=== PATIENT | male | born 1940 | race Caucasian/White ===

== ENCOUNTER 2021-05-26 08:29 | Emergency (ER) | payer MEDICARE, SELFPAY ==
[2021-05-26 08:30] VITALS: BP 130/95; PULSE 58; RESP 17; TEMP 36.3; O2SAT 100; BMI 25.2
--- NOTE | 2021-05-26 09:22 | EKG12_ITS ---
Test Reason : FALL Blood Pressure : / mmHG Vent. Rate : 054 BPM Atrial Rate : 054 BPM P-R Int : 186 ms QRS Dur : 092 ms QT Int : 476 ms P-R-T Axes : 061 059 056 degrees QTc Int : 451 ms Sinus bradycardia Otherwise normal ECG Confirmed by VIVIENNE BROOKS, MARTINEZ ([id number]), newspaper editor KATE ROBISON ([id number]) on 05/29/2021 9:05:38 AM Referred By: Confirmed By:MARTINEZ PALAFOX MD
--- NOTE | 2021-05-26 09:22 | CT_ITS ---
STUDY: CT BRAIN WITHOUT CONTRAST REASON FOR EXAM: Male, 80 years old. injury RADIATION DOSAGE (If Supplied By Facility): CTDIvol = ( 44.99 ) mGy, DLP = ( ) mGycm TECHNIQUE: Transaxial CT imaging of the brain was performed without administration of intravenous contrast material. Individualized dose optimization techniques were used for this CT. COMPARISON: No relevant priors. FINDINGS: Normal soft tissue structures. Normal calvarium. Normal size ventricles and extra-axial spaces for the patient''s age. Normal white matter tracts of the cerebral hemispheres. Normal basal ganglia and thalami. Normal brainstem. Normal cerebellum. There is no intracranial hemorrhage. There are no findings of an acute ischemic infarction. Normal visualized paranasal sinuses. CT/Brain/Head without Contrast IMPRESSION: Normal unenhanced CT scan of the brain. Electronically Signed: Boyd Godwin MD at 10:07 EST Tel , Service support ,
--- NOTE | 2021-05-26 09:22 | RAD_ITS ---
STUDY: X-RAY CHEST REASON FOR EXAM: Male, 80 years old. syncope TECHNIQUE: Single AP portable view of the chest. COMPARISON: None. FINDINGS: The lungs are clear and expanded. There is no demonstrated pleural abnormality. Normal size heart. Normal mediastinum and martha. Normal visualized pulmonary arteries. Normal visualized aortic arch and descending thoracic aorta. Normal visualized thoracic spine. Normal visualized ribs, clavicles, and shoulders. There is no demonstrated abnormality of the visualized soft tissue structures of the upper abdomen. RAD/Chest 1 View (Portable) IMPRESSION: Normal x-ray examination of the chest. Electronically Signed: Boyd Godwin MD at 10:30 EST Tel , Service support ,
--- NOTE | 2021-05-26 09:22 | CT_ITS ---
STUDY: CT CERVICAL SPINE WITHOUT CONTRAST REASON FOR EXAM: Male, 80 years old. injury RADIATION DOSAGE (If Supplied By Facility): CTDIvol = ( 17.92 ) mGy, DLP = ( 1178.73 ) mGycm TECHNIQUE: High resolution transaxial imaging was performed without contrast material. Sagittal and coronal images were reconstructed. Individualized dose optimization techniques were used for this CT. COMPARISON: 06/03/2016 FINDINGS: Normal craniovertebral junction. There are degenerative changes of the anterior atlantoaxial articulation. Normal odontoid process. Normal cervical lordosis. Normal vertebral bodies and posterior osseous elements. Flowing paravertebral ossification within the lower cervical spine consistent with diffuse idiopathic skeletal hyperostosis (DISH) (. C2-3: Mild right facet hypertrophy with ankylosis of the facet joint. No spinal stenosis or neural foraminal stenosis. C3-4: Moderate right facet hypertrophy with ankylosis of facet joint produces moderate right neural foraminal stenosis. No central spinal stenosis. C4-5: Mild left facet hypertrophy produces mild left neural foraminal stenosis. No central spinal stenosis. C5-6: Status post posterior decompression and transpedicular fixation with anatomic alignment with no spinal stenosis or neural foraminal stenosis. C6-7: Status post posterior decompression and transpedicular fixation with anatomic alignment with no spinal stenosis or neural foraminal stenosis. C7-T1: Status post transpedicular fixation with anatomic alignment and no spinal stenosis or neural foraminal stenosis. Normal visualized soft tissue structures. CT/Spine Cervical without Contras IMPRESSION: No acute fracture or subluxation. Electronically Signed: Boyd Godwin MD at 10:27 EST Tel , Service support ,
--- NOTE | 2021-05-26 09:23 | RAD_ITS ---
STUDY: X-RAY - LEFT HAND REASON FOR EXAM: Male, 80 years old. injury TECHNIQUE: 3 view(s) of the hand. COMPARISON: None. FINDINGS: Normal radiocarpal articulation. Normal distal radioulnar joint. Normal visualized carpal bones. Normal carpal articulations Normal carpometacarpal articulation of the thumb. Normal second through fifth carpometacarpal joints. Normal metacarpi. Normal metacarpophalangeal joint of the thumb. Normal interphalangeal joint of the thumb. Normal proximal and distal phalanges of the thumb. Normal metacarpophalangeal joints of the second through fifth fingers. There is diffuse articular joint space narrowing of the proximal and distal interphalangeal joints of the second through fifth fingers, but without erosive changes or periarticular soft tissue swelling. Normal phalanges of the second through fifth fingers. The soft tissue structures are unremarkable. RAD/Hand Min 3 Views IMPRESSION: No acute fracture or dislocation. Electronically Signed: Boyd Godwin MD at 10:18 EST Tel , Service support ,
--- NOTE | 2021-05-26 09:23 | RAD_ITS ---
STUDY: X-RAY - PELVIS AND RIGHT HIP REASON FOR EXAM: Male, 80 years old. injury TECHNIQUE: 3 views of the pelvis and hip. COMPARISON: None. FINDINGS: There is a non-specific bowel gas pattern. Normal visualized soft tissue structures. Normal bilateral iliac wings, sacroiliac joints and visualized sacrum. Normal bilateral superior and inferior pubic rami. Normal pubic symphysis. Normal bilateral ischial tuberosities. There are osteoarthritic changes of the femoral head with marginal osteophyte formation. There is cortical sclerosis with sub-cortical cyst formation of the acetabulum. There is moderate articular joint space narrowing of the hip. RAD/HIP, UNI W/ Pelvis 2-3 Views IMPRESSION: 1. No acute fracture or dislocation. 2. Moderate arthrosis. Electronically Signed: Boyd Godwin MD at 10:09 EST Tel , Service support ,
--- NOTE | 2021-05-26 09:23 | EDS_ITS ---
HPI History of Present Illness Chief Complaint: Fall Informant: patient Narrative Narrative: 80-year-old male states he was laying in bed today when he had the urge to urinate. He unfortunately also had a charley horse in his calf at the same time. He states that he got up to stretch the calf and decided that he would urinate. States he was going into the bathroom and remembers starting to feel nauseous and lightheaded and weak. His found him on the floor in the closet. He states he has a slight discomfort in his right hip but he states that is not abnormal for him. Daughter is notes that he was sweaty when she got to him. had a recent pneumonia admission. Patient also notes he broke his neck several years ago and has some mild neck discomfort. Unknown if he struck his head. He is not on anticoagulation other than aspirin [facility] Medical History (Updated 05/26/21 @ 10:[address] Rashid Ortega, DO) Anxiety BPH (benign prostatic hypertrophy) C6 cervical fracture C7 cervical fracture Cervical transverse process fracture Depression DVT (deep venous thrombosis) Dysphagia Hyperlipidemia Hypertension Osteoarthritis Vertebral artery dissection Home Medications acetaminophen 1,000 mg PO Q8H PRN PRN #0 tablet 06/05/16 [Rx Last Taken Unknown] artificial tear([id number]) [GenTeal Tears Moderate] 1 drp EACH EYE Q1H PRN PRN #1 bottle 06/05/16 [Rx Last Taken Unknown] aspirin 81 mg PO DAILY@0800 #30 tab.chew 06/05/16 [Rx Last Taken Unknown] atenolol 25 mg PO DAILY #30 tablet 06/05/16 [Rx Last Taken Unknown] atorvastatin 40 mg PO QHS #30 tablet 06/05/16 [Rx Last Taken Unknown] bisacodyl 10 mg RECTAL DAILY PRN #30 suppos. 06/05/16 [Rx Last Taken Unknown] finasteride 5 mg PO DAILY #30 tablet 06/05/16 [Rx Last Taken Unknown] hydrochlorothiazide 25 mg PO DAILY #30 tablet 06/05/16 [Rx Last Taken Unknown] hydrocodone-acetaminophen 1 - 2 tab PO Q6H PRN PRN #60 tablet 06/05/16 [Rx Last Taken Unknown] menthol-zinc oxide [Calmoseptine] 1 applic TOPICAL TID #1 tube 06/05/16 [Rx Last Taken Unknown] polyethylene glycol 3350 17 g PO DAILY PRN #30 packet 06/05/16 [Rx Last Taken Unknown] sennosides-docusate sodium [Stool Softener-Stimulant Laxat] 1 tab PO BID PRN #60 tablet 06/05/16 [Rx Last Taken Unknown] sertraline 50 mg PO DAILY #30 tablet 06/05/16 [Rx Last Taken Unknown] Allergy/AdvReac Type Severity Reaction Status Date / Time No Known Allergies Allergy Verified 05/26/21 08:35 Surgical History History of heart artery stent Social History (Updated 05/26/21 @ 09:[address] Rashid Ortega DO) current gender identity: male Smoking Status: Never smoker ROS ROS ED Constitutional Constitutional ED: Denies chills, fever(s) or weight loss Eyes Eyes: Denies change in vision or diplopia ENT ENT ED: Denies ear pain, rhinorrhea or sore throat Cardiovascular Cardiovascular: Reports other Details: Syncope ; Denies chest pain, orthopnea, palpitations or racing heartbeat Respiratory/Chest Respiratory/Chest: Denies cough, dyspnea or orthopnea Gastrointestinal Gastrointestinal: Denies abdominal pain, diarrhea, nausea or vomiting Genitourinary Genitourinary ED: Denies dysuria, hematuria or urinary frequency Musculoskeletal Musculoskeletal: Reports neck pain and other Details: Right hip left hand pain ; Denies arthralgias or myalgias Integumentary Denies abscess or rash Neurologic Neurologic: Denies headache(s) or weakness Psychiatric Psychiatric: Denies anxiety, depression, suicidal ideation or suicidal thoughts Endocrine Endocrinology: Denies polydipsia, polyphagia or polyuria Allergic/Immunologic Allergic/Immunologic ED: Denies mouth swelling, tongue swelling or urticaria EXAM Physical Exam Const Vital Signs: 05/26/21 08:30 05/26/21 10:00 Temperature 97.3 F L Temperature Source Oral Pulse Rate 58 L 54 L Respiratory Rate 17 17 Respiratory Effort Normal Non-Labored Respiratory Depth Normal Respiratory Pattern Normal Blood Pressure 130/95 H 173/63 H Blood Pressure Mean 106 99 Pulse Ox 100 96 Oxygen Delivery Method Room Air Positive well nourished and well developed General Appearance ED: well developed HEENT Reports normocephalic, head/scalp atraumatic, TM's clear and moist mucous membranes HEENT Narrative: Midface stable no dental trauma atraumatic Tympanic Membrane ED: Yes TM's clear Eyes PERRL and EOMs intact bilaterally Neck no lymphadenopathy, supple and no JVD Resp normal respiratory effort and clear to auscultation bilaterally Cardio regular rate and no murmurs Rate: regular rate and bradycardia GI normal to inspection, nondistended, normoactive bowel sounds and non-tender Palpation: soft Back/Spine no CVA tenderness and normal ROM Extremity Extremity Narrative: Mild tenderness to palpation over the greater trochanter of the right hip. There is a contusion over the first metacarpal area on the left hand General Extremety ED: Negative for edema General Extremity: Negative for edema Neuro oriented x3 and CN's II-XII intact bilaterally Sensorium / Orientation: alert Motor Exam: strength 5/5 throughout Psych mental status grossly normal Mood & Affect: Negative for depressed or tearful Skin no rashes or lesions noted and no wounds MDM MDM MDM Narrative Medical decision making narrative: CT the brain was negative. CT cervical spine negative for fracture. Chest x-ray on my interpretation shows no acute process. Basic blood work is negative. His EKG is a sinus bradycardia. I believe the patient had micturition syncope. Believe the patient can be safely discharged home return if worsening or concerns Lab Data Attestation: I reviewed the patient's lab results. Labs: Laboratory Results - last 24 hr 05/26/21 05/26/21 08:44 08:44 WBC 5.1 RBC 5.19 Hgb 14.7 Hct 44.3 MCV 85.4 MCH 28.3 MCHC 33.2 RDW Std Deviation 42.5 RDW Coeff of Ila 13.7 Plt Count 160 MPV 9.2 Immature Gran % (Auto) 0.800 Neut % (Auto) 67.4 Lymph % (Auto) 20.1 [place] % (Auto) 9.0 Eos % (Auto) 2.5 Baso % (Auto) 0.2 Absolute Neuts (auto) 3.5 Absolute Lymphs (auto) 1.03 Nucleated RBC % 0 Sodium 143 Potassium 3.3 L Chloride 108 H Carbon Dioxide 29.0 Anion Gap 6 BUN 20 H Creatinine 0.96 Estim Creat Clear Calc 55.47 Est GFR (MDRD) Af Amer 96 Est GFR (MDRD) Non-Af 80 BUN/Creatinine Ratio 20.8 H Glucose 140 H Calcium 9.1 Total Bilirubin 1.30 H AST 31 ALT 35 Alkaline Phosphatase 70 Troponin I High Sens 7 Total Protein 6.0 L Albumin 3.3 Globulin 2.7 Albumin/Globulin Ratio 1.2 Radiography Diagnostic Testing: Clinical Impression(s) from Imaging Studies Brain CT 05/26/21 09:22 IMPRESSION: Normal unenhanced CT scan of the brain. Electronically Signed: Boyd Godwin MD at 10:07 EST Tel , Service support , Cervical Spine CT 05/26/21 09:22 IMPRESSION: No acute fracture or subluxation. Electronically Signed: Boyd Godwin MD at 10:27 EST Tel , Service support , Chest X-Ray 05/26/21 09:22 IMPRESSION: Normal x-ray examination of the chest. Electronically Signed: Boyd Godwin MD at 10:30 EST Tel , Service support , Hand X-Ray 05/26/21 09:23 IMPRESSION: No acute fracture or dislocation. Electronically Signed: Boyd Godwin MD at 10:18 EST Tel , Service support , Hip/Pelvis X-Ray 05/26/21 09:23 IMPRESSION: 1. No acute fracture or dislocation. 2. Moderate arthrosis. Electronically Signed: Boyd Godwin MD at 10:09 EST Tel , Service support , Discharge Plan Triage Chief Complaint: Fall ED Provider: Rashid Ortega Dx/Rx/DC Orders Clinical Impression: Micturition syncope Instructions: Causes of Syncope Prescriptions: No Action atorvastatin 40 MG tablet 40 mg PO QHS Qty: 30 RF: 0 polyethylene glycol 3350 17 GM powder in packet 17 g PO DAILY PRN (Reason: Constipation) Qty: 30 RF: 0 hydrocodone-acetaminophen 1 TABLET tablet 1 - 2 tab PO Q6H PRN PRN (Reason: Pain) Qty: 60 RF: 0 sennosides-docusate sodium [Stool Softener-Stimulant Laxat] 1 TABLET tablet 1 tab PO BID PRN (Reason: Constipation) Qty: 60 RF: 0 atenolol 25 MG tablet 25 mg PO DAILY Qty: 30 RF: 0 acetaminophen 500 MG tablet 1,000 mg PO Q8H PRN PRN (Reason: Pain) Qty: 0 RF: 0 bisacodyl 10 MG suppository 10 mg RECTAL DAILY PRN (Reason: Constipation) Qty: 30 RF: 0 hydrochlorothiazide 25 MG tablet 25 mg PO DAILY Qty: 30 RF: 0 sertraline 50 MG tablet 50 mg PO DAILY Qty: 30 RF: 0 finasteride 5 MG tablet 5 mg PO DAILY Qty: 30 RF: 0 artificial tear([id number]) [GenTeal Tears Moderate] 1 DROP bottle 1 drp Each Eye Q1H PRN PRN (Reason: DRY EYES/ITCHY) Qty: 1 RF: 0 menthol-zinc oxide [Calmoseptine] 1 APPLIC Tube 1 applic topical TID Qty: 1 RF: 0 aspirin 81 MG tablet,chewable 81 mg PO DAILY@0800 Qty: 30 RF: 0 Primary Care Provider: Rigo John Referrals: Rigo John MD [Primary Care Provider] - 1 Week Disposition Disposition: Home, Self Care
[2021-05-26 09:34] LABS: Absolute Lymphocyte Count 1.03 X10^3/uL (0.83-4.51); Absolute Neutrophil Count 3.5 X10^3/uL (2.0-7.7); Basophil# 0.01 X10^3/uL; Basophil% 0.2 % (0-1); Eosinophil# 0.13 X10^3/uL; Eosinophils% 2.5 % (0-5); Hematocrit 44.3 % (40-54); Hemoglobin 14.7 g/dL (13.0-16.5); Lymphocyte # 1.03 X10^3/ul (0.83-4.51); Lymphocyte % 20.1 % (19-41); Mean Corp Hgb Conc 33.2 g/dL (32-36); Mean Corpuscular Hgb 28.3 pg (27.0-32.0); Mean Corpuscular Volume 85.4 fL (80-94); Mean Platelet Vol. 9.2 fl (6.2-12.0); Monocyte# 0.46 X10^3/uL; NRBC Flagged by Analyzer 0 % (0-5); Neutrophil # 3.46 X10^3/uL (2.7-7.7); Neutrophil % 67.4 % (47-70); Platelet Count 160 K/mm3 (150-450); RBC Distribution Width CV 13.7 % (11.6-14.6); RBC Distribution Width SD 42.5 fl (35.1-43.9); Red Blood Count 5.19 M/mm3 (4.6-6.2); White Blood Count 5.1 K/mm3 (4.4-11.0)
[2021-05-26 09:45] LABS: ALB/GLOB Ratio 1.2 RATIO (0.9-2.4); AST(SGOT) 31 U/L (15-37); Alanine Aminotransfer ALT/SGPT 35 U/L (16-61); Albumin, Serum 3.3 g/dL (3.2-5.0); Alkaline Phosphatase 70 U/L (45-117); Anion Gap 6 (5-15); BUN 20 mg/dL (7-18); BUN/Creat Ratio 20.8 RATIO (10-20); Calcium,Total 9.1 mg/dL (8.5-10.1); Chloride 108 mmol/L (98-107); Creatinine, Serum 0.96 mg/dL (0.70-1.30); EST Glomerular Filtration Rate 80 mL/min (>60); Est Glom Filt Rate - Afr Amer 96 mL/min (>60); Estimated Creatinine Clearance 55.47 ml/min; Globulin 2.7 g/dL (2.2-4.2); Glucose 140 mg/dL (74-106); Potassium 3.3 mmol/L (3.5-5.1); Sodium Level 143 mmol/L (136-145); Troponin-I HS 7 pg/mL (3.0-78.0)
[2021-05-26 10:00] VITALS: BP 173/63; PULSE 54; RESP 17; O2SAT 96
[2021-05-26 11:09] VITALS: BP 118/57; PULSE 55; RESP 18; O2SAT 96
== END 2021-05-26 11:09 | disposition home or self-care (01) ==
PROVIDERS: Emergency Provider Emergency Medicine; PCP Family Medicine
DX: R39.198 Other difficulties with micturition (principal); R55 Syncope and collapse; E78.5 Hyperlipidemia, unspecified; F32.A Depression, unspecified; F41.9 Anxiety disorder, unspecified; I10 Essential (primary) hypertension; N40.0 Benign prostatic hyperplasia without lower urinary tract symptoms; Z79.82 Long term (current) use of aspirin
CPT/HCPCS: 70450; 71045; 72125; 73130; 73502; 80053; 84484; 85025; 93005; 99285

== ENCOUNTER 2021-05-27 00:31 | Observation (INO) | payer MEDICARE, SELFPAY ==
[2021-05-27] VITALS (13 sets, daily range): BP systolic 103–133; BP diastolic 57–82; PULSE 57–67; RESP 16–19; TEMP 36.4–36.9; O2SAT 94–100; BMI 25.6; BMI 24.4
--- NOTE | 2021-05-27 01:09 | EKG12_ITS ---
Test Reason : DYSRYTHMIA Blood Pressure : / mmHG Vent. Rate : 059 BPM Atrial Rate : 059 BPM P-R Int : 194 ms QRS Dur : 084 ms QT Int : 450 ms P-R-T Axes : 067 067 056 degrees QTc Int : 445 ms Sinus bradycardia Otherwise normal ECG Confirmed by VIVIENNE BROOKS, MARTINEZ ([id number]), newspaper or periodical editor KATE ROBISON ([id number]) on 05/29/2021 9:25:48 AM Referred By: MINDY Confirmed By:MARTINEZ PALAFOX MD
--- NOTE | 2021-05-27 01:09 | RAD_ITS ---
EXAM: XR CHEST, 1 VIEW : 1940 CLINICAL INDICATION: cad TECHNIQUE: Frontal view of the chest. This report was created using [employer] report generation technology. COMPARISON: 05/26/21 FINDINGS: LUNGS AND PLEURAL SPACES: Unremarkable. No consolidation or edema. No pneumothorax. No effusion. HEART: Unremarkable. Cardiac silhouette not enlarged. MEDIASTINUM: Central airways and mediastinal contour are unremarkable. BONES/JOINTS: Degenerative changes of the spine. SOFT TISSUES: Surgical clips in the left supraclavicular region. RAD/Chest 1 View (Portable) IMPRESSION: No acute findings in the chest. at 0220 Reported and signed by: Davonte Collado MD Electronically Signed: Davonte Collado MD at 2:19 EST Tel , Service support ,
--- NOTE | 2021-05-27 01:09 | CT_ITS ---
EXAM: CT HEAD WITHOUT INTRAVENOUS CONTRAST CLINICAL INDICATION: seizure seizure TECHNIQUE: Multiple axial images were obtained of the head without intravenous contrast. This CT exam was performed using one or more of the following dose reduction techniques: automated exposure control, adjustment of the mA and/or kV according to patient size, and/or use of iterative reconstruction technique. This report was created using [employer] report generation technology. COMPARISON: CT scan brain 05/26/2021. FINDINGS: BRAIN AND EXTRA-AXIAL SPACES: Unremarkable. No intra- or extra-axial hemorrhage. No evidence of acute infarct. No intracranial mass or mass effect. There is preservation of the andrews/white matter interface. Posterior fossa structures are unremarkable. Ventricles are appropriate for age. No hydrocephalus. Basal cisterns are patent. BONES/JOINTS: Unremarkable. No discrete lytic or blastic abnormalities. VASCULATURE: There is atherosclerotic calcification of the vertebral and cavernous carotid arteries. SINUSES: Unremarkable as visualized. Clear. MASTOID AIR CELLS: Unremarkable. Clear. ORBITS: Visualized globes, extraocular muscles, optic nerves and retrobulbar fat appear unremarkable. CT/Brain/Head without Contrast IMPRESSION: No demonstrated acute intracranial process. Electronically Signed: Ish Bermudez MD at 2:21 EST , Service support ,
--- NOTE | 2021-05-27 01:09 | CT_ITS ---
ACR Level 3 findings have been noted. An addendum which confirms receipt of the report will follow. EXAM: CT LUMBAR SPINE WITHOUT INTRAVENOUS CONTRAST : 1940 CLINICAL INDICATION: trauma TECHNIQUE: Helically acquired images were obtained of the lumbar spine without intravenous contrast. 2D reformats were reviewed. This CT exam was performed using one or more of the following dose reduction techniques: automated exposure control, adjustment of the mA and/or kV according to patient size, and/or use of iterative reconstruction technique. This report was created using [employer] report [employer] technology. COMPARISON: None. FINDINGS: VERTEBRAE: There is a nondisplaced oblique fracture through the L3 vertebral body extending from the anterosuperior margin down to the inferior endplate and also extends into the lateral vertebral body margins. This is best appreciated on the sagittal reformats. There is no extension into the posterior vertebral body margin, no retropulsed fragments, no compromise of the central spinal canal. Diffuse demineralization of the osseous structures. L5 pars defects. No other acute fractures identified. No traumatic subluxation. No discrete lytic or blastic abnormality. DISCS/SPINAL CANAL/NEURAL FORAMINA: Unremarkable. Disc heights are preserved. No critical stenosis. VASCULATURE: Visualized abdominal aorta is not dilated. LYMPH NODES: Unremarkable. No retroperitoneal adenopathy. CT/Spine Lumbar without Contrast IMPRESSION: There is a nondisplaced oblique fracture through the L3 vertebral body extending from the anterosuperior margin down to the inferior endplate and also extends into the lateral vertebral body margins. This is best appreciated on the sagittal reformats. There is no extension into the posterior vertebral body margin, no retropulsed fragments, no compromise of the central spinal canal. Individualized dose optimization techniques were used for this CT. at 0222 Reported and signed by: Davonte Collado MD Electronically Signed: Davonte Collado MD at 2:21 EST Tel , Service support ,
--- NOTE | 2021-05-27 01:11 | EX.ED.DYSGE1 ---
HPI History of Present Illness Chief Complaint: Seizure Narrative Narrative: Patient presents via EMS with reported seizures. He was seen earlier this morning after a case of micturition syncope. He had fallen and hit his head. Additionally, they noticed a large hematoma on the small of his back in the lumbar area that developed after he was discharged. His daughter is currently staying with him because of his fall this morning. After he was released, they noticed that he had a seizure today where he started shaking and was staring off into space somewhat unresponsive. There was no loss of bowel or bladder. They state that that had happened this morning. That was this evening around 5 or 6:00, then he had another episode at 8 or 9 PM. It was reported by EMS that he had an absence seizure. Once again no loss of bowel or bladder. His daughter presents in for reevaluation because he had 3 seizures this evening. [facility] Medical History Anxiety BPH (benign prostatic hypertrophy) C6 cervical fracture C7 cervical fracture Cervical transverse process fracture Depression DVT (deep venous thrombosis) Dysphagia Hyperlipidemia Hypertension Osteoarthritis Vertebral artery dissection Home Medications GenTeal Tears Moderate 1 drp EACH EYE Q1H PRN PRN #1 bottle 06/05/16 [Rx Last Taken Unknown] aspirin 81 mg PO DAILY@0800 #30 tab.chew 06/05/16 [Rx Last Taken Unknown] atenolol 25 mg PO DAILY #30 tablet 06/05/16 [Rx Last Taken Unknown] atorvastatin 40 mg PO QHS #30 tablet 06/05/16 [Rx Last Taken Unknown] finasteride 5 mg PO DAILY #30 tablet 06/05/16 [Rx Last Taken Unknown] hydrochlorothiazide 25 mg PO DAILY #30 tablet 06/05/16 [Rx Last Taken Unknown] sertraline 50 mg PO DAILY #30 tablet 06/05/16 [Rx Last Taken Unknown] Allergy/AdvReac Type Severity Reaction Status Date / Time methocarbamol [From Robaxin] AdvReac Other Verified 05/27/21 00:37 Surgical History History of heart artery stent Social History Smoking Status: Never smoker ROS ROS ED ROS Narrative Constitutional: No fever, no chills. HEENT: No sore throat. No neck pain. No loss of vision. No rhinorrhea. Cardiovascular: No chest pain. No palpitations. No pedal edema. Respiratory: No cough, no shortness of breath. Abdominal: No abdominal pain. No nausea. No vomiting. Genitourinary: No dysuria. No hematuria. Musculoskeletal: No myalgias. No arthralgias. Mild lumbar back pain. Neurologic: No headaches. No dizziness. No lightheadedness. Reported seizures/absence seizure. Skin: No rash. No change in color. Psychiatric: No depression. No anxiety. EXAM Physical Exam Narrative Exam Narrative: Afebrile. Vital signs noted. HEENT: Normocephalic. Atraumatic. PERRL, EOMI. Neck soft and supple. No point tenderness or step off. Cardiovascular: Regular rate and rhythm. No murmurs, rubs, or gallops appreciated. Respiratory: No tachypnea. Lungs clear to auscultation bilaterally. Gastrointestinal: Abdomen soft, nontender, with normoactive bowel sounds. No rebound or guarding. Neurological: Awake. Alert. Oriented x3 nonfocal, nonlateralizing. Skin: No rash. Normal color. No pallor. Positive ecchymosis with mild hematoma lumbar spine/small of back Musculoskeletal: No pedal edema. Full range of motion extremities. Const Vital Signs: 05/27/21 00:32 05/27/21 02:24 05/27/21 03:29 Temperature 97.9 F Temperature Source Temporal Pulse Rate 60 57 L Respiratory Rate 18 16 Blood Pressure 119/67 133/66 H Blood Pressure Mean 84 88 Pulse Ox 95 94 Oxygen Delivery Method Room Air Room Air 05/27/21 03:35 Temperature 97.9 F Temperature Source Temporal Pulse Rate 58 L Respiratory Rate 19 H Blood Pressure 128/57 H Blood Pressure Mean 80 Pulse Ox 96 Oxygen Delivery Method Room Air MDM MDM MDM Narrative Medical decision making narrative: I reviewed the patient's prior records. I repeat his laboratory work and the CT of his head. Additionally I obtained a CT of the lumbar spine given his large hematoma that had developed after discharge. It does show an L3 nondisplaced vertebral body fracture. He has slightly low potassium of 3.4 with a BUN of 20 but creatinine is normal at 1.0. Glucose appropriately elevated at 151 with a normal anion gap of 5. He has a normal white count and hemoglobin is stable at 13.6. Urinalysis is negative for infection. CT of the brain shows no acute process, no significant change. Chest x-ray in 1 view shows no acute process. His EKG demonstrates normal sinus bradycardia at 59 bpm without ectopy or acute ST changes. Initially, I discussed possible transfer with the patient as it was reported that the EEG machine here is an operable. The [facility] are unavailable for transfer, even as a trauma. I then discussed the patient with the neurologist on-call, Dr. Lawrence. She recommended withholding any anticonvulsants unless the patient has another episode, but recommends that the patient be observed and MRI obtained of the brain. I discussed patient with Dr. Mays who will assign the patient to observation in the PCU. He is in stable condition. Lab Data Attestation: I reviewed the patient's lab results. Labs: Laboratory Results - last 24 hr 05/27/21 05/27/21 05/27/21 00:35 00:35 01:32 WBC 10.8 RBC 4.83 Hgb 13.6 Hct 41.6 MCV 86.1 MCH 28.2 MCHC 32.7 RDW Std Deviation 43.1 RDW Coeff of Ila 13.8 Plt Count 190 MPV 9.2 Immature Gran % (Auto) 0.400 Neut % (Auto) 88.8 H Lymph % (Auto) 5.3 L [place] % (Auto) 5.4 Eos % (Auto) 0.0 Baso % (Auto) 0.1 Absolute Neuts (auto) 9.6 H Absolute Lymphs (auto) 0.57 L Nucleated RBC % 0 Sodium 141 Potassium 3.4 L Chloride 104 Carbon Dioxide 32.0 Anion Gap 5 BUN 20 H Creatinine 1.00 Estim Creat Clear Calc 53.25 Est GFR (MDRD) Af Amer 92 Est GFR (MDRD) Non-Af 76 BUN/Creatinine Ratio 20.1 H Glucose 151 H Calcium 9.1 Total Bilirubin 1.00 AST 31 ALT 33 Alkaline Phosphatase 81 Troponin I High Sens 6 Total Protein 6.2 L Albumin 3.4 Globulin 2.8 Albumin/Globulin Ratio 1.2 Urine Color Yellow Urine Clarity Clear Urine pH 5.0 Ur Specific [place] 1.020 Urine Protein 30 H Urine Glucose (UA) 100 H Urine Ketones Negative Urine Occult Blood Negative Urine Nitrite Negative Urine Bilirubin Negative Urine Urobilinogen Normal Ur Leukocyte Esterase 25 H Urine RBC 0 SEEN Urine WBC 0 SEEN Ur Squamous Epith Cells 0 SEEN Urine Bacteria RARE Urine Mucus 1+ Radiography Diagnostic Testing: Clinical Impression(s) from Imaging Studies Brain CT 05/27/21 01:09 IMPRESSION: No demonstrated acute intracranial process. Electronically Signed: Ish Bermudez MD at 2:21 EST , Service support , Chest X-Ray 05/27/21 01:09 IMPRESSION: No acute findings in the chest. at 0220 Reported and signed by: Davonte Collado MD Electronically Signed: Davonte Collado MD at 2:19 EST Tel , Service support , Lumbar Spine CT 05/27/21 01:09 IMPRESSION: There is a nondisplaced oblique fracture through the L3 vertebral body extending from the anterosuperior margin down to the inferior endplate and also extends into the lateral vertebral body margins. This is best appreciated on the sagittal reformats. There is no extension into the posterior vertebral body margin, no retropulsed fragments, no compromise of the central spinal canal. Individualized dose optimization techniques were used for this CT. at 0222 Reported and signed by: Davonte Collado MD Electronically Signed: Davonte Collado MD at 2:21 EST Tel , Service support , ADDENDUM: 05/27/21 0234 IMPRESSION: There is a nondisplaced oblique fracture through the L3 vertebral body extending from the anterosuperior margin down to the inferior endplate and also extends into the lateral vertebral body margins. This is best appreciated on the sagittal reformats. There is no extension into the posterior vertebral body margin, no retropulsed fragments, no compromise of the central spinal canal. Individualized dose optimization techniques were used for this CT. at 0222 Reported and signed by: Davonte Collado MD N.B. : Annel Boateng/NORM hermosillo OT, confirmed on 05/27/2021 02:27:29 (ET) that the healthcare facility has received the radiology report. Electronically Signed: Davonte Collado MD at 2:21 EST Tel , Service support , Discharge Plan Dx/Rx/DC Orders Clinical Impression: Seizures, Closed L3 vertebral fracture Disposition Disposition: Acute Care Hospital [facility]
[2021-05-27 01:18] LABS: Absolute Lymphocyte Count 0.57 X10^3/uL (0.83-4.51); Absolute Neutrophil Count 9.6 X10^3/uL (2.0-7.7); Basophil# 0.01 X10^3/uL; Basophil% 0.1 % (0-1); Hematocrit 41.6 % (40-54); Hemoglobin 13.6 g/dL (13.0-16.5); Lymphocyte # 0.57 X10^3/ul (0.83-4.51); Lymphocyte % 5.3 % (19-41); Mean Corp Hgb Conc 32.7 g/dL (32-36); Mean Corpuscular Hgb 28.2 pg (27.0-32.0); Mean Corpuscular Volume 86.1 fL (80-94); Mean Platelet Vol. 9.2 fl (6.2-12.0); Monocyte# 0.58 X10^3/uL; Monocyte% 5.4 % (0-10); NRBC Flagged by Analyzer 0 % (0-5); Neutrophil # 9.64 X10^3/uL (2.7-7.7); Neutrophil % 88.8 % (47-70); POSITIVE DIFFERENTIAL YES; Platelet Count 190 K/mm3 (150-450); RBC Distribution Width CV 13.8 % (11.6-14.6); RBC Distribution Width SD 43.1 fl (35.1-43.9); Red Blood Count 4.83 M/mm3 (4.6-6.2); White Blood Count 10.8 K/mm3 (4.4-11.0)
[2021-05-27 01:32] LABS: ALB/GLOB Ratio 1.2 RATIO (0.9-2.4); AST(SGOT) 31 U/L (15-37); Alanine Aminotransfer ALT/SGPT 33 U/L (16-61); Albumin, Serum 3.4 g/dL (3.2-5.0); Alkaline Phosphatase 81 U/L (45-117); Anion Gap 5 (5-15); BUN 20 mg/dL (7-18); BUN/Creat Ratio 20.1 RATIO (10-20); Calcium,Total 9.1 mg/dL (8.5-10.1); Chloride 104 mmol/L (98-107); EST Glomerular Filtration Rate 76 mL/min (>60); Est Glom Filt Rate - Afr Amer 92 mL/min (>60); Estimated Creatinine Clearance 53.25 ml/min; Globulin 2.8 g/dL (2.2-4.2); Glucose 151 mg/dL (74-106); Potassium 3.4 mmol/L (3.5-5.1); Protein, Total 6.2 g/dL (6.4-8.2); Sodium Level 141 mmol/L (136-145); Troponin-I HS 6 pg/mL (3.0-78.0)
[2021-05-27 01:38] LABS: Red Blood Cells-Urine 0 SEEN /hpf (0-5); Squamous Epithelial Cells - UA 0 SEEN /hpf (0-5); White Blood Cells 0 SEEN /hpf (0-5)
[2021-05-27 01:56] LABS: Color, Urine Yellow (Yellow); Glucose, Dipstick 100 mg/dl (Normal); Ketone-Dipstick Negative (Negative); Leukocyte Esterase-Dipstick 25 /ul (Negative); Nitrite-Dipstick Negative (Negative); Occult Blood-Urine Negative /ul (Negative); Protein-Dipstick 30 mg/dl (Negative); Urine Bilirubin Dipstick Negative (Negative); Urine Clarity Clear (Clear); Urine Urobilinogen Normal (Normal)
[2021-05-27 01:57] LABS: Differential Indicated SCAN CRITERIA MET
[2021-05-27 02:19] LABS: Bacteria RARE /hpf (None Seen); Mucous, Urine 1+ /hpf (<or=2+)
--- NOTE | 2021-05-27 03:55 | HP.PCM_ITS ---
HPI - General HPI Narrative BINDU MENESES, is a 80 M who presents to the emergency room with chief complaint of seizure. Patient was seen and examined earlier yesterday for what was thought to be a fall and he was diagnosed with a hematoma and L3 nondisplaced vertebral fracture. Patient was treated and discharged home however, he retur nan after having 3 bouts of seizure like activity at home. The seizures were described more as absence like seizures where the patient became unresponsive lasting a period of 30 seconds to 2 minutes. As I was examining and interviewing the patient he started to feel nauseous and became unresponsive for a period of about 30 seconds with some clonic jerking of his upper extremities. He then became responsive and was able to resume normal conversation. The patient denies chest pain shortness of breath, fever or chills. Patient has a Covid test pending and has had a history of both vaccinations but has not had a booster shot yet. Since the seizure was witnessed in the emergency room by tg vilchis a loading dose of Keppra was ordered. Patient does have a history of the past of a fracture of the cervical spine for which he received some titanium hardware. The patient will be admitted to PCU for observation and an MRI of the head will be ordered. [facility] Medical History Anxiety BPH (benign prostatic hypertrophy) C6 cervical fracture C7 cervical fracture Cervical transverse process fracture Depression DVT (deep venous thrombosis) Dysphagia Hyperlipidemia Hypertension Osteoarthritis Vertebral artery dissection Home Medications GenTeal Tears Moderate 1 drp EACH EYE Q1H PRN PRN #1 bottle 06/05/16 [Rx Last Taken Unknown] aspirin 81 mg PO DAILY@0800 #30 tab.chew 06/05/16 [Rx Last Taken Unknown] atenolol 25 mg PO DAILY #30 tablet 06/05/16 [Rx Last Taken Unknown] atorvastatin 40 mg PO QHS #30 tablet 06/05/16 [Rx Last Taken Unknown] finasteride 5 mg PO DAILY #30 tablet 06/05/16 [Rx Last Taken Unknown] hydrochlorothiazide 25 mg PO DAILY #30 tablet 06/05/16 [Rx Last Taken Unknown] sertraline 50 mg PO DAILY #30 tablet 06/05/16 [Rx Last Taken Unknown] Allergy/AdvReac Type Severity Reaction Status Date / Time methocarbamol [From Robaxin] AdvReac Other Verified 05/27/21 00:37 Surgical History History of heart artery stent Social History Smoking Status: Never smoker ROS Constitutional Constitutional: Denies anorexia, chills, fatigue, fever(s) or weakness Eyes Eyes: Denies blurry vision ENT HEENT: Denies abnormal hearing Cardiovascular Cardiovascular: Denies chest pain Respiratory/Chest Respiratory/Chest: Denies cough Gastrointestinal Gastrointestinal: Denies abdominal pain Genitourinary Genitourinary: Denies urinary urgency Musculoskeletal Musculoskeletal: Reports back pain Integumentary Integumentary: Denies dry skin Neurologic Neurologic: Reports seizures; Denies abnormal speech or confusion Psychiatric Psychiatric: Denies anxiety Vital Signs Vital Signs Vital Signs: 05/27/21 00:32 05/27/21 02:24 05/27/21 03:29 Temperature 97.9 F Temperature Source Temporal Pulse Rate 60 57 L Respiratory Rate 18 16 Blood Pressure 119/67 133/66 H Blood Pressure Mean 84 88 Pulse Ox 95 94 Oxygen Delivery Method Room Air Room Air 05/27/21 03:35 Temperature 97.9 F Temperature Source Temporal Pulse Rate 58 L Respiratory Rate 19 H Blood Pressure 128/57 H Blood Pressure Mean 80 Pulse Ox 96 Oxygen Delivery Method Room Air Weight Weight: 163 lb 9.328 oz Body Mass Index (BMI) 25.6 Physical Exam Const oriented x3 and no apparent distress General Appearance: cooperative HEENT normocephalic and head/scalp atraumatic Eyes PERRL and EOMs intact bilaterally Neck supple and no JVD Lymph Lymphatic: no lymphadenopathy noted Resp normal respiratory effort, normal air movement and clear to auscultation bilaterally Cardio regular rate, regular rhythm, S1 normal heart sound, S2 normal heart sound and no murmurs GI normal to inspection, nondistended, normoactive bowel sounds, soft to palpation, non-tender and non-distended Extremity normal capillary refill and no clubbing, cyanosis or edema Skin General Skin Exam: turgor normal Neuro CN's II-XII intact bilaterally, no focal motor deficits and no sensory deficits noted Neuro Narrative: 30second seizure witnessed Psych affect normal Appearance: appropriate Results Lab / Micro Data Result Diagrams: 05/27/21 00:35 05/27/21 00:35 Labs: Laboratory Results - last 24 hr 05/27/21 00:35: WBC 10.8, RBC 4.83, Hgb 13.6, Hct 41.6, MCV 86.1, MCH 28.2, MCHC 32.7, RDW Std Deviation 43.1, RDW Coeff of Ila 13.8, Plt Count 190, MPV 9.2, Immature Gran % (Auto) 0.400, Neut % (Auto) 88.8 H, Lymph % (Auto) 5.3 L, [place] % (Auto) 5.4, Eos % (Auto) 0.0, Baso % (Auto) 0.1, Absolute Neuts (auto) 9.6 H, Ab solute Lymphs (auto) 0.57 L, Nucleated RBC % 0 05/27/21 00:35: Sodium 141, Potassium 3.4 L, Chloride 104, Carbon Dioxide 32.0, Anion Gap 5, BUN 20 H, Creatinine 1.00, Estim Creat Clear Calc 53.25, Est GFR (MDRD) Af Amer 92, Est GFR (MDRD) Non-Af 76, BUN/Creatinine Ratio 20.1 H, Glucos e 151 H, Calcium 9.1, Total Bilirubin 1.00, AST 31, ALT 33, Alkaline Phosphatase 81, Troponin I High Sens 6, Total Protein 6.2 L, Albumin 3.4, Globulin 2.8, Albumin/Globulin Ratio 1.2 05/27/21 01:32: Urine Color Yellow, Urine Clarity Clear, Urine pH 5.0, Ur Specific [place] 1.020, Urine Protein 30 H, Urine Glucose (UA) 100 H, Urine Ketones Negative, Urine Occult Blood Negative, Urine Nitrite Negative, Urine Bilirubin Negative, Urine Urobilinogen Normal, Ur Leukocyte Esterase 25 H, Urine RBC 0 SEEN, Urine WBC 0 SEEN, Ur Squamous Epith Cells 0 SEEN, Urine Bacteria RARE, Urine Mucus 1+ Radiology Impression Brain CT 05/27/21 01:09 IMPRESSION: No demonstrated acute intracranial process. Electronically Signed: Ish Bermudez MD at 2:21 EST , Service support , Chest X-Ray 05/27/21 01:09 IMPRESSION: No acute findings in the chest. at 0220 Reported and signed by: Davonte Collado MD Electronically Signed: Davonte Collado MD at 2:19 EST Tel , Service support , Lumbar Spine CT 05/27/21 01:09 IMPRESSION: There is a nondisplaced oblique fracture through the L3 vertebral body extending from the anterosuperior margin down to the inferior endplate and also extends into the lateral vertebral body margins. This is best appreciated on the sagittal reformats. There is no extension into the posterior vertebral body margin, no retropulsed fragments, no compromise of the central spinal canal. Individualized dose optimization techniques were used for this CT. at 0222 Reported and signed by: Davonte Collado MD Electronically Signed: Davonte Collado MD at 2:21 EST Tel , Service support , ADDENDUM: 05/27/21 0234 IMPRESSION: There is a nondisplaced oblique fracture through the L3 vertebral body extending from the anterosuperior margin down to the inferior endplate and also extends into the lateral vertebral body margins. This is best appreciated on the sagittal reformats. There is no extension into the posterior vertebral body margin, no retropulsed fragments, no compromise of the central spinal canal. Individualized dose optimization techniques were used for this CT. at 0222 Reported and signed by: Davonte Collado MD N.B. : Annel Boateng/NORM hermosillo OT, confirmed on 05/27/2021 02:27:29 (ET) that the healthcare facility has received the radiology report. Electronically Signed: Davonte Collado MD at 2:21 EST Tel , Service support , Assessment & Plan Assessment/Plan (1) Seizures: (2) Closed L3 vertebral fracture: PLAN: 1 new onset seizures?admit patient to PCU for observation, neurologic evaluations every 4 hours, MRI of the head noncontrast to be ordered for the morning. Patient was started on Keppra in the emergency room with a loading dose and will decide if patient needs further antiepileptic medication tomorrow when evaluated by physician. A Covid test is pending at the time of my evaluation. Possible etiologies include viral infection. I postulate that is more likely that he fell earlier this morning resulting in the L3 vertebral fracture as result of another seizure. 2. Closed L3 vertebral fracture monitor for now supportive care. 3. DVT prophylaxis?low molecular weight heparin Charges/Coding Visit Charges OBSV E&M: 06214 Initial observation care L2
[2021-05-27] MEDS: levETIRAcetam IV 1,000 MG/100 ML BAG 400 MG IV (04:01)
--- NOTE | 2021-05-27 04:36 | MRI_ITS ---
EXAM: MR HEAD WITHOUT INTRAVENOUS CONTRAST CLINICAL INDICATION: seizure-new s/p fall TECHNIQUE: Multiplanar and multisequence MR images of the brain were obtained without intravenous contrast. This report was created using [employer] report generation technology. COMPARISON: CT head without contrast 05/27/2021. FINDINGS: BRAIN AND EXTRA-AXIAL SPACES: Unremarkable. No intra- or extra-axial hemorrhage. No evidence of acute infarct. No intracranial mass or mass effect. There is preservation of the andrews/white matter interface. Posterior fossa structures are unremarkable. Normal ventricles and cisterns. SELLA: Unremarkable. Normal sella turcica, pituitary gland, infundibular stalk, optic chiasm and hypothalamus. AUDITORY SYSTEM: Unremarkable. The internal auditory canals are patent. BONES/JOINTS: Unremarkable. No discrete lytic or blastic abnormalities. SINUSES: Unremarkable as visualized. Clear. MASTOID AIR CELLS: Unremarkable as visualized. Clear. ORBITS: Unremarkable as visualized. Both globes, extraocular muscles, optic nerves and retrobulbar fat appear unremarkable. VASCULATURE: Unremarkable as visualized. Normal flow voids in the major intracranial circulation. MRI/Brain without Contrast IMPRESSION: Negative MRI brain without intravenous contrast. Electronically Signed: Edward Jarquin MD at 9:53 EST , Service support ,
--- NOTE | 2021-05-27 05:03 | PCS.PANDOC ---
PANDEMIC DOCUMENTATION INITIATED: Date: 01/13/2021 Time: 190
[2021-05-27] MEDS: Atenolol 25 MG Tablet PO (10:10)
[2021-05-27] MEDS: hydroCHLOROthiazide 25 MG Tablet PO (10:10)
[2021-05-27] MEDS: Sertraline 50 MG Tablet PO (10:10)
[2021-05-27] MEDS: Enoxaparin 40 MG/0.4 ML Syringe SC (10:10)
[2021-05-27] MEDS: Finasteride 5 MG Tablet PO (10:10)
[2021-05-27] MEDS: Potassium Chloride Oral Tablet 20 MEQ 40 MEQ PO (10:10)
[2021-05-27] MEDS: Aspirin 81 MG TAB.CHEW PO (10:10)
--- NOTE | 2021-05-27 11:58 | TELEMED_ITS ---
[facility] Telemed has confirmed receipt of a request for visit. This document confirms receipt of the order initiating the consult. To find the results of the consultation, please view the patient's reports for the scanned Telemed Consult.
--- NOTE | 2021-05-27 16:56 | NURSING ---
Daughter Chaya reported to PAC over phone that patient had what she thought to be a seizure around 1510, daughter did not notify this RN of any possible seizure like activity and went home for the day. Daughter sent video, which the PA and I reviewed together and pt was responsive in video and did not appear to have any seizure like activity. VS stable, alert and oriented, responsive to all commands at this time.
--- NOTE | 2021-05-27 17:02 | PN.HOSP_ITS ---
Documented by User: Michael PEÑALOZA 05/27/21 17:05 Hospitalist Note Patient is an 80-year-old male who was admitted to [facility] on 05/19/2021 for seizure-like activity. SOC consult was obtained and recommendations are to obtain EEG and MRI, not initiate anticonvulsant meds due to possible of activity being related to sequelae of concussion and observe. MRI did not demonstrate any evidence of acute ischemia or infarction. EEG did not reveal any epileptiform changes. Discussed with family who requested that patient remain admitted overnight for observation. This provider felt this was appropriate as patient seemed weak and was in need of physical therapy and occupational therapy assessment. Will remain admitted overnight for PT/OT evaluation and monitor for seizure. DVT prophylaxis - Lovenox. Patient seen by Michael Alicea PA-C, under the supervision of Dr. Rodas. Documented by User: Dr. Stephanie Rodas MD 05/28/21 15:49 Addendum Addendum: Patient seen by Michael Alicea PA-C under my supervision Patient is an 80-year-old male who was admitted with a complaint of seizure-like activity. CT of the brain was negative an MRI of the brain done was also negative. EEG also showed no evidence of seizure. SOC neurology was consulted and reviewed patient but did not initiate anticonvulsants as they were not convinced patient had a seizure. PT OT was on board. Patient and family opted to hold discharge until tomorrow. To monitor overnight and for discharge on 05/28/2021. Rest as per Michael Alicea PA-C's note, which I have reviewed and endorsed.
[2021-05-27] MEDS: Atorvastatin Calcium 40 MG Tablet PO (21:01)
[2021-05-28 03:00] VITALS: PULSE 57
[2021-05-28 03:10] VITALS: BP 116/57; PULSE 63; RESP 16; TEMP 37.1; O2SAT 98
[2021-05-28 06:27] LABS: Anion Gap 5 (5-15); BUN 16 mg/dL (7-18); BUN/Creat Ratio 17.2 RATIO (10-20); Calcium,Total 8.9 mg/dL (8.5-10.1); Chloride 104 mmol/L (98-107); Creatinine, Serum 0.93 mg/dL (0.70-1.30); EST Glomerular Filtration Rate 83 mL/min (>60); Est Glom Filt Rate - Afr Amer 100 mL/min (>60); Estimated Creatinine Clearance 57.26 ml/min; Glucose 88 mg/dL (74-106); Potassium 3.5 mmol/L (3.5-5.1); Sodium Level 142 mmol/L (136-145)
[2021-05-28 07:00] VITALS: PULSE 54
[2021-05-28] MEDS: Acetaminophen 325 MG Tablet 650 MG PO (09:05)
[2021-05-28] MEDS: Enoxaparin 40 MG/0.4 ML Syringe SC (09:05)
[2021-05-28] MEDS: Sertraline 50 MG Tablet PO (09:05)
[2021-05-28] MEDS: hydroCHLOROthiazide 25 MG Tablet PO (09:05)
[2021-05-28] MEDS: Atenolol 25 MG Tablet PO (09:05)
[2021-05-28] MEDS: Finasteride 5 MG Tablet PO (09:05)
[2021-05-28] MEDS: Aspirin 81 MG TAB.CHEW PO (09:05)
[2021-05-28 09:09] VITALS: BP 101/49; PULSE 63; RESP 16; TEMP 36.3; O2SAT 98
--- NOTE | 2021-05-28 10:24 | PCM.DC ---
Discharge Instructions Diet Discharge Diet: No restrictions Activity Discharge Activity: Return to Normal Activity Weight Bearing Status: Weight bearing as tolerated Dressing / Incision Call your doctor if you observe: Fever of 101 or Higher, Numbness or Tingling, Shortness of breath, Dizziness, Chest pain, Increased palpitations (irregular heartbeat) and Calf discomfort Follow Up Care Please Follow Up With: Primary care provider When: Within the next two weeks. Test Results: Test results from this visit will be discussed in further detail at your follow-up appointment, if applicable. Discharge Plan Admission Admit Date/Time: 05/27/21 04:05 Primary Reason for Your Visit: Seizure like acitivity Attending Provider: Stephanie Rodas Primary Care Provider: Rigo John Discharge Orders/Prescriptions Prescriptions: Continued atorvastatin 40 MG tablet 40 mg PO QHS Qty: 30 RF: 0 atenolol 25 MG tablet 25 mg PO DAILY Qty: 30 RF: 0 hydrochlorothiazide 25 MG tablet 25 mg PO DAILY Qty: 30 RF: 0 sertraline 50 MG tablet 50 mg PO DAILY Qty: 30 RF: 0 finasteride 5 MG tablet 5 mg PO DAILY Qty: 30 RF: 0 GenTeal Tears Moderate 1 DROP bottle 1 drp Each Eye Q1H PRN PRN (Reason: DRY EYES/ITCHY) Qty: 1 RF: 0 aspirin 81 MG tablet,chewable 81 mg PO DAILY@0800 Qty: 30 RF: 0 Discontinued doxycycline monohydrate 50 mg capsule 50 mg BID RF: 0 Referrals / Follow Up: Rigo John MD [Primary Care Provider] - Within 2 Weeks Rey Sinclair MD [NON-STAFF] - See Referral Note (Make appointment to establish outpatient Neurology care to follow up on your seizure episodes. ) Disposition Disposition (needs filled in before D/C Order can be placed): Home, Self Care
[2021-05-28 10:33] VITALS: BP 101/49; PULSE 63; RESP 16; TEMP 36.3; O2SAT 98
--- NOTE | 2021-05-28 10:58 | CASEMGMT ---
SANJEEV CM to room with BALBUENA form. Patient alert and oriented. BALBUENA form explained and questions answered. Signed form placed on patient chart and copy provided to patient. Patient discharging from hospital today. Patient denies need for HHC at this time.
[2021-05-28 11:00] VITALS: PULSE 60
--- NOTE | 2021-05-28 13:32 | DS.PCM_ITS ---
Documented by User: Michael PEÑALOZA 05/28/21 13:38 Providers Date of Admission: 05/27/21 Date of Discharge: 05/28/21 Primary Care Physician: Dr. Rigo John MD Reason For Visit: siezures Diagnosis Discharge Diagnosis (1) Seizures: Status: Acute Code(s): R56.9 - Unspecified convulsions (2) Closed L3 vertebral fracture: Status: Acute Code(s): S32.039A - Unspecified fracture of third lumbar vertebra, initial encounter for closed fracture Medications at Discharge Home Medications GenTeal Tears Moderate 1 drp EACH EYE Q1H PRN PRN #1 bottle 06/05/16 aspirin 81 mg PO DAILY@0800 #30 tab.chew 06/05/16 atenolol 25 mg PO DAILY #30 tablet 06/05/16 atorvastatin 40 mg PO QHS #30 tablet 06/05/16 finasteride 5 mg PO DAILY #30 tablet 06/05/16 hydrochlorothiazide 25 mg PO DAILY #30 tablet 06/05/16 sertraline 50 mg PO DAILY #30 tablet 06/05/16 Hospital Course Procedures Electroencephalogram Summary of Care Provided Minutes Spent on Discharge: 35 Hospital Course: Patient is an 80-year-old male who was admitted to [facility] on 05/27/2021 for seizure-like activity. SOC consult was obtained and recommendations are to obtain EEG and MRI, not initiate anticonvulsant meds due to possible of activity being related to sequelae of concussion and observe. MRI did not demonstrate any evidence of acute ischemia or infarction. EEG did not reveal any epileptiform changes. Patient is to follow-up with Dr. Sinclair for outpatient neurology follow-up and primary care provider within the next 2 weeks. It was discussed with family that if patient is observed to have any more seizure-like activity that they are to report to the emergency room immediately for follow on care. Patient seen by Michael Alicea PA-C, under the supervision of Dr. Rodas. Physical Exam Narrative Patient is an 80-year-old male comfortably resting in bed, alert and orient x3. Patient denies any more seizure-like episodes, and was not observed to have any by nursing staff. Denies development of any new symptoms overnight. Does not appear in acute distress. Const alert, oriented x3 and no apparent distress HEENT normocephalic, head/scalp atraumatic and hearing grossly normal bilaterally Eyes PERRL, EOMs intact bilaterally and conjunctivae normal Neck no lymphadenopathy, supple and no JVD Resp normal respiratory effort, no retractions, no use of accessory muscles and clear to auscultation bilaterally Cardio regular rate, regular rhythm, no murmurs and no JVD GI normal to inspection, nondistended, normoactive bowel sounds, soft to palpation and non-tender Extremity normal to inspection, full ROM and no clubbing, cyanosis or edema Skin no rashes or lesions noted, no wounds and skin turgor normal Neuro CN's II-XII intact bilaterally Psych affect normal Weight / BMI Weight Weight: 155 lb 13.869 oz Body Mass Index (BMI) 24.4 ABG / Lab / Microbiology Data Result Diagrams: 05/27/21 00:35 05/28/21 05:30 Laboratory: Laboratory Results - last 24 hr 05/28/21 05:30: Sodium 142, Potassium 3.5, Chloride 104, Carbon Dioxide 33.0 H, Anion Gap 5, BUN 16, Creatinine 0.93, Estim Creat Clear Calc 57.26, Est GFR (MDRD) Af Amer 100, Est GFR (MDRD) Non-Af 83, BUN/Creatinine Ratio 17.2, Glucose 88, Calcium 8.9 Microbiology: Microbiology 05/27/21 03:50 Nasal Secretion SARS-CoV-2 Antigen (Rapid) - Final D/C Instructions Discharge Diet: No restrictions Weight Bearing Status: Weight bearing as tolerated Call your doctor if you observe: Fever of 101 or Higher, Numbness or Tingling, Shortness of breath, Dizziness, Chest pain, Increased palpitations (irregular heartbeat) and Calf discomfort Please Follow Up With: Primary care provider When: Within the next two weeks. Meaningful Use Info Meaningful Use Diagnoses (Choose all that apply): None applicable Discharge Plan Admission Admit Date/Time: 05/27/21 04:05 Primary Reason for Your Visit: Seizure like acitivity Attending Provider: Stephanie Rodas Primary Care Provider: Rigo John Discharge Orders/Prescriptions Prescriptions: Continued atorvastatin 40 MG tablet 40 mg PO QHS Qty: 30 RF: 0 atenolol 25 MG tablet 25 mg PO DAILY Qty: 30 RF: 0 hydrochlorothiazide 25 MG tablet 25 mg PO DAILY Qty: 30 RF: 0 sertraline 50 MG tablet 50 mg PO DAILY Qty: 30 RF: 0 finasteride 5 MG tablet 5 mg PO DAILY Qty: 30 RF: 0 GenTeal Tears Moderate 1 DROP bottle 1 drp Each Eye Q1H PRN PRN (Reason: DRY EYES/ITCHY) Qty: 1 RF: 0 aspirin 81 MG tablet,chewable 81 mg PO DAILY@0800 Qty: 30 RF: 0 Discontinued doxycycline monohydrate 50 mg capsule 50 mg BID RF: 0 Referrals / Follow Up: Rigo John MD [Primary Care Provider] - Within 2 Weeks Rey Sinclair MD [NON-STAFF] - See Referral Note (Make appointment to establish outpatient Neurology care to follow up on your seizure episodes. ) Disposition Disposition (needs filled in before D/C Order can be placed): Home, Self Care Documented by User: Dr. Stephanie Rodas MD 05/28/21 15:58 Providers Date of Admission: 05/27/21 Reason For Visit: siezures Medications at Discharge Home Medications GenTeal Tears Moderate 1 drp EACH EYE Q1H PRN PRN #1 bottle 06/05/16 aspirin 81 mg PO DAILY@0800 #30 tab.chew 06/05/16 atenolol 25 mg PO DAILY #30 tablet 06/05/16 atorvastatin 40 mg PO QHS #30 tablet 06/05/16 finasteride 5 mg PO DAILY #30 tablet 06/05/16 hydrochlorothiazide 25 mg PO DAILY #30 tablet 06/05/16 sertraline 50 mg PO DAILY #30 tablet 06/05/16 ABG / Lab / Microbiology Data Result Diagrams: 05/27/21 00:35 05/28/21 05:30 Discharge Plan Admission Admit Date/Time: 05/27/21 04:05 Primary Reason for Your Visit: Seizure like acitivity Attending Provider: Stephanie Rodas Primary Care Provider: Rigo John Discharge Orders/Prescriptions Prescriptions: Continued atorvastatin 40 MG tablet 40 mg PO QHS Qty: 30 RF: 0 atenolol 25 MG tablet 25 mg PO DAILY Qty: 30 RF: 0 hydrochlorothiazide 25 MG tablet 25 mg PO DAILY Qty: 30 RF: 0 sertraline 50 MG tablet 50 mg PO DAILY Qty: 30 RF: 0 finasteride 5 MG tablet 5 mg PO DAILY Qty: 30 RF: 0 GenTeal Tears Moderate 1 DROP bottle 1 drp Each Eye Q1H PRN PRN (Reason: DRY EYES/ITCHY) Qty: 1 RF: 0 aspirin 81 MG tablet,chewable 81 mg PO DAILY@0800 Qty: 30 RF: 0 Discontinued doxycycline monohydrate 50 mg capsule 50 mg BID RF: 0 Referrals / Follow Up: Rigo John MD [Primary Care Provider] - Within 2 Weeks Rey Sinclair MD [NON-STAFF] - See Referral Note (Make appointment to establish outpatient Neurology care to follow up on your seizure episodes. ) Disposition Disposition (needs filled in before D/C Order can be placed): Home, Self Care Charges/Coding Addendum Addendum: Patient seen by Michael Alicea PA-C under my supervision Patient is an 80-year-old male with a past medical history as outlined who was admitted through the ED with a complaint of seizure. Patient had been seen earlier in the day on the day of admission in the ED after a mechanical fall was diagnosed with hematoma and bruising of the lower spine as well as an L3 nondisplaced vertebral fracture. He returned home but subsequently had 3 bouts of seizure-like activity at home where family noted that he was unresponsive for a brief periods which was thought to be due to possible absence seizure's. He was given a loading dose of Keppra and was admitted to be managed for seizures. CT of the brain was negative an MRI of the brain done was also negative. SOC was consulted. EEG of the brain done was also negative. PT OT was consulted. Neurology was consulted and reviewed patient and thought his fall was likely due to micturition syncope. Per neurology, his periods of unresponsiveness was concerning for partial complex seizures but neurology decided to hold off on starting anticonvulsants at that time. Patient remained stable and MRI of the brain was negative. He was discharged on 05/28/2021 and is to follow-up with neurology and his primary care doctor on outpatient basis. Patient was seen and examined prior to discharge. He had no active complaints and felt well. Review of systems otherwise negative. Labs and vitals reviewed. Home medication reviewed and reconciled. O/E: Const alert, oriented x3 and no apparent distress HEENT normocephalic, head/scalp atraumatic and hearing grossly normal bilaterally Eyes PERRL, EOMs intact bilaterally and conjunctivae normal Neck no lymphadenopathy, supple and no JVD Resp normal respiratory effort, no retractions, no use of accessory muscles and clear to auscultation bilaterally Cardio regular rate, regular rhythm, no murmurs and no JVD GI normal to inspection, nondistended, normoactive bowel sounds, soft to palpation and non-tender Extremity normal to inspection, full ROM and no clubbing, cyanosis or edema Skin extensive hematoma over lower back, mildly tender to touch Neuro CN's II-XII intact bilaterally Psych affect normal Plan is for discharge home today as above. Rest as per Michael Alicea PA-C's note which I have reviewed and endorsed. Visit Charges OBSV E&M: [id number] Observation care discharge
== END 2021-05-28 10:33 | disposition home or self-care (01) ==
LOC: ED 03:43 → PCU 05:20
PROVIDERS: Physician Assistant; Admitting Provider Family Medicine; Emergency Provider Emergency Medicine; PCP Family Medicine; Visit Provider Student in an Organized Health Care Education/Training Program
DX: R56.9 Unspecified convulsions (principal); R11.0 Nausea; R00.1 Bradycardia, unspecified; F41.9 Anxiety disorder, unspecified; N40.0 Benign prostatic hyperplasia without lower urinary tract symptoms; F32.A Depression, unspecified; I10 Essential (primary) hypertension; M19.90 Unspecified osteoarthritis, unspecified site; E78.5 Hyperlipidemia, unspecified; S32.039A Unspecified fracture of third lumbar vertebra, initial encounter for closed fracture; W19.XXXA Unspecified fall, initial encounter; Y93.9 Activity, unspecified; Y92.9 Unspecified place or not applicable; Y99.9 Unspecified external cause status; Z79.899 Other long term (current) drug therapy; Z79.82 Long term (current) use of aspirin; Z86.718 Personal history of other venous thrombosis and embolism
CPT/HCPCS: 36415; 70450; 70551; 71045; 72131; 80048; 80053; 81001; 84484; 85025; 87426; 93005; 95819; 96365; 96372; 97162; 97166; 99218; 99285; J7050; A4216; G0378

== ENCOUNTER 2023-03-24 09:02 | Emergency (ER) | payer MEDICARE, SELFPAY ==
[2023-03-24 09:04] VITALS: BP 130/64; PULSE 58; RESP 17; TEMP 36.4; O2SAT 97
[2023-03-24] MEDS: 0.9% Normal Saline (1000mL) 1,000 ML 1000 ML IV (09:24)
--- NOTE | 2023-03-24 09:28 | EX.ED.DYSGE1 ---
HPI History of Present Illness Chief Complaint: Syncope Informant: patient and family Narrative Narrative: Patient has been feeling intermittently lightheaded. Patient has a history of some orthostatic issues. He is fallen once in broken lumbar spine. He fell once and broke his neck. He states yesterday he was getting lightheaded sometimes when he was standing up walking. But if he sat down he would feel better for a while. Never had chest pain or palpitations. He never fell. This morning he got up and went to the bathroom. He had to strain to urinate which is not uncommon. After that he got up and walked into the other room. When he got up he felt little bit lightheaded. He feels fine now. He denied any other symptoms and states he has been feeling fine. However, his daughter states he has been complaining that he thinks he has COVID because he just has not felt right for couple days. But no specific symptoms that he or she can give. She does state that he has been under stress because his is having a cardiac procedure tomorrow in [place]. His sleep has been less. He also does admit that he has not been drinking fluids much. Of note, he is still on his finasteride as well as atenolol. But no change in dose. No vomiting. No diarrhea. No fevers. No coughing. No chest pain. There has been a decreased p.o. intake of fluids though. [facility] Medical History Anxiety BPH (benign prostatic hypertrophy) C6 cervical fracture C7 cervical fracture Cervical transverse process fracture Closed L3 vertebral fracture Depression DVT (deep venous thrombosis) Dysphagia Hyperlipidemia Hypertension Osteoarthritis Vertebral artery dissection Home Medications artificial tears([id number]) 0.1 %-0.3 %-0.2 % eye drops (GenTeal Tears Moderate) 1 drp Q1H PRN PRN DRY EYES/ITCHY ##1 06/05/16 [Rx Last Taken Unknown] aspirin 81 mg chewable tablet 81 mg PO DAILY@0800 ##30 06/05/16 [Rx Last Taken 03/23/23] atenolol 25 mg tablet 25 mg PO DAILY ##30 06/05/16 [Rx Last Taken 03/23/23] atorvastatin 40 mg tablet 40 mg PO QHS ##30 06/05/16 [Rx Last Taken 03/23/23] finasteride 5 mg tablet 5 mg PO DAILY ##30 06/05/16 [Rx Last Taken 03/23/23] hydrochlorothiazide 25 mg tablet 25 mg PO DAILY ##30 06/05/16 [Rx Last Taken 03/23/23] sertraline 50 mg tablet 100 mg PO DAILY 03/24/23 [History Last Taken Unknown] Allergy/AdvReac Type Severity Reaction Status Date / Time methocarbamol [From Robaxin] AdvReac Other Verified 03/24/23 09:06 Surgical History History of heart artery stent Social History Smoking Status: Never smoker ROS ROS ED ROS Narrative A complete review of systems was performed and is negative except as documented in the history of present illness. Some specific details below. Constitutional: No recent fevers or chills. Possible malaise. He feels as though he could have COVID but cannot actually place symptoms that are causing these thoughts. EYE: No discharge, visual complaints, or pain. No visual field cut. No vertigo. ENT: No difficulty swallowing. No swelling. No pain. No reflux symptoms. CV: Chest pain or palpitations. He does not feel as though his heart is missing beats, slow, or fast. Respiratory: No coughing or trouble breathing. GI: No abdominal pain. No nausea vomiting diarrhea. No blood in stool. : No frequency dysuria or hematuria. Musculoskeletal: No recent trauma. No pains. No swelling. He has not actually fallen. Skin: No rash. Nondiaphoretic. Neuro: No focal weakness or numbness. Endocrine: No polyuria or polydipsia. EXAM Physical Exam Narrative Exam Narrative: CONSTITUTIONAL: Patient is nontoxic in appearance. The patient looks comfortable. Work of breathing looks normal. HEENT: No notable trauma. Mucous membranes dry. No sinus tenderness. No indication of pain with swallowing. EYES: No conjunctival injection. No proptosis. Range of motion is normal. Pupils are normal. No icterus. NECK:No JVD. No stridor. CARDIOVASCULAR: Mildly bradycardic rate. Monitor, his rate runs about 55-62 while I am in the room. It does appear to be sinus. No ectopy is noted. Regular rhythm. No notable murmur. No JVD. RESPIRATORY: No respiratory distress. Breathing is unlabored. No wheezes. No rhonchi. No rales. No pain with a deep breath. No chest wall tenderness. GASTROINTESTINAL: Not distended. Bowel sounds are normal. No tenderness. No guarding. No rebound. No palpable mass. No bruit is heard. GENITOURINARY: No tenderness over the bladder. No CVA tenderness. MUSCULOSKELETAL: Atraumatic. No peripheral edema. No cord. NEUROLOGICAL: Patient is alert and appropriate. No focal deficit noted. SKIN: No noted rashes. No diaphoresis. No notable pallor. No petechiae. PSYCHIATRIC: Patient is calm. Mood is appropriate. Const Vital Signs: 03/24/23 09:04 03/24/23 09:09 Temperature 97.6 F L Temperature Source Oral Pulse Rate 58 L Respiratory Rate 17 Respiratory Effort Normal Non-Labored Respiratory Pattern Normal Blood Pressure 130/64 H Blood Pressure Mean 86 Pulse Ox 97 Oxygen Delivery Method Room Air MDM MDM MDM Narrative Medical decision making narrative: Patient CBC is normal. Patient's electrolytes show low potassium at 3.2. This was replaced orally. Patient's glucose was just minimally high at 112. Patient's urine showed 0 white cells. No strong indication of infection. Patient's labs do not show significant dehydration. But he admits to not drinking much fluid. He was given IV fluids. We will get him up and walk. As long as he feels well I think we can get him home. I looked back over his vital signs. His heart rate has been in the 50s or low 60s for the last 6 years. I have to go back to 2017 or earlier to get any heart rates at 70 or more. He states he only takes half an atenolol a day. I encouraged him to take that but if his heart rate goes in the low 50s or below he should hold it. But it does not sound like he is getting bradycardia causing his symptoms. Lab Data Attestation: I reviewed the patient's lab results. Labs: Laboratory Results - last 24 hr 03/24/23 03/24/23 09:19 10:10 WBC 7.9 RBC 5.23 Hgb 14.9 Hct 44.9 MCV 85.9 MCH 28.5 MCHC 33.2 RDW Std Deviation 42.1 RDW Coeff of Ila 13.4 Plt Count 199 MPV 9.1 Immature Gran % (Auto) 0.400 Neut % (Auto) 82.7 H Lymph % (Auto) 9.9 L Hendricks % (Auto) 6.7 Eos % (Auto) 0.3 Baso % (Auto) 0.0 Absolute Neuts (auto) 6.5 Absolute Lymphs (auto) 0.78 L Nucleated RBC % 0 Sodium 141 Potassium 3.2 L Chloride 102 Carbon Dioxide 34.0 H Anion Gap 5 BUN 14 Creatinine 0.90 Est GFR (MDRD) Af Amer 103 Est GFR (MDRD) Non-Af 85 BUN/Creatinine Ratio 15.5 Glucose 112 H Calcium 9.4 Urine Color Yellow Urine Clarity Sl. Cloudy Urine pH 6.5 Ur Specific [place] 1.020 Urine Protein 15 H Urine Glucose (UA) 50 H Urine Ketones Negative Urine Occult Blood Negative Urine Nitrite Negative Urine Bilirubin Negative Urine Urobilinogen 1 H Ur Leukocyte Esterase Negative Urine RBC 0 SEEN Urine WBC 0 SEEN Ur Squamous Epith Cells 0-5 SEEN Urine Bacteria 1+ Urine Mucus 0 SEEN EKG Initial EKG: Comments: Independent interpretation of the patient's EKG shows sinus bradycardia with first-degree AV block. No ventricular ectopy. There is some baseline artifact. No acute ST elevation or depression. SD interval is long. QRS duration and QTc are normal. Discharge Plan Triage Chief Complaint: Syncope ED Provider: Isrrael Jamil Dx/Rx/DC Orders Clinical Impression: Intermittent lightheadedness, Bradycardia, sinus, Dehydration, mild Instructions: ED Dizziness or Syncope ... Prescriptions: No Action atorvastatin 40 MG tablet 40 mg PO QHS Qty: 30 0RF atenolol 25 MG tablet 25 mg PO DAILY Qty: 30 0RF hydrochlorothiazide 25 MG tablet 25 mg PO DAILY Qty: 30 0RF finasteride 5 MG tablet 5 mg PO DAILY Qty: 30 0RF GenTeal Tears Moderate 1 DROP bottle 1 drp Each Eye Q1H PRN PRN (Reason: DRY EYES/ITCHY) Qty: 1 0RF aspirin 81 MG tablet,chewable 81 mg PO DAILY@0800 Qty: 30 0RF sertraline 50 MG tablet 100 mg PO DAILY Patient Comments: PT STATES DR CHANGED IT FROM 50 TO 100 MG Primary Care Provider: Rigo John Referrals: Rigo John MD [Primary Care Provider] - 3-5 Days Disposition Disposition: Home, Self Care
[2023-03-24 09:31] LABS: Absolute Lymphocyte Count 0.78 X10^3/uL (0.83-4.51); Absolute Neutrophil Count 6.5 X10^3/uL (2.0-7.7); Eosinophil# 0.02 X10^3/uL; Eosinophils% 0.3 % (0-5); Hematocrit 44.9 % (40-54); Hemoglobin 14.9 g/dL (13.0-16.5); Lymphocyte # 0.78 X10^3/ul (0.83-4.51); Lymphocyte % 9.9 % (19-41); Mean Corp Hgb Conc 33.2 g/dL (32-36); Mean Corpuscular Hgb 28.5 pg (27.0-32.0); Mean Corpuscular Volume 85.9 fL (80-94); Mean Platelet Vol. 9.1 fl (6.2-12.0); Monocyte# 0.53 X10^3/uL; Monocyte% 6.7 % (0-10); NRBC Flagged by Analyzer 0 % (0-5); Neutrophil # 6.51 X10^3/uL (2.7-7.7); Neutrophil % 82.7 % (47-70); Platelet Count 199 K/mm3 (150-450); RBC Distribution Width CV 13.4 % (11.6-14.6); RBC Distribution Width SD 42.1 fl (35.1-43.9); Red Blood Count 5.23 M/mm3 (4.6-6.2); White Blood Count 7.9 K/mm3 (4.4-11.0)
[2023-03-24 09:45] LABS: Anion Gap 5 (5-15); BUN 14 mg/dL (7-18); BUN/Creat Ratio 15.5 RATIO (10-20); Calcium,Total 9.4 mg/dL (8.5-10.1); Chloride 102 mmol/L (98-107); EST Glomerular Filtration Rate 85 mL/min (>60); Est Glom Filt Rate - Afr Amer 103 mL/min (>60); Glucose 112 mg/dL (74-106); Potassium 3.2 mmol/L (3.5-5.1); Sodium Level 141 mmol/L (136-145)
[2023-03-24] MEDS: Potassium Chloride Oral Tablet 20 MEQ 40 MEQ PO (10:12)
[2023-03-24 10:15] LABS: Mucous, Urine 0 SEEN /hpf (<or=2+); Red Blood Cells-Urine 0 SEEN /hpf (0-5); White Blood Cells 0 SEEN /hpf (0-5)
[2023-03-24 10:31] LABS: Color, Urine Yellow (Yellow); Glucose, Dipstick 50 mg/dl (Normal); Ketone-Dipstick Negative (Negative); Leukocyte Esterase-Dipstick Negative /ul (Negative); Nitrite-Dipstick Negative (Negative); Occult Blood-Urine Negative /ul (Negative); Protein-Dipstick 15 mg/dl (Negative); Urine Bilirubin Dipstick Negative (Negative); Urine Clarity Sl. Cloudy (Clear); Urine Urobilinogen 1 mg/dl (Normal); Urine pH 6.5 (5.0 - 8.0)
[2023-03-24 10:39] LABS: Bacteria 1+ /hpf (None Seen); Squamous Epithelial Cells - UA 0-5 SEEN /hpf (0-5)
[2023-03-24 11:12] VITALS: BP 131/67; PULSE 56; RESP 18; O2SAT 97
== END 2023-03-24 11:19 | disposition home or self-care (01) ==
PROVIDERS: Emergency Provider Emergency Medicine; PCP Family Medicine; Visit Provider Emergency Medicine
DX: R42 Dizziness and giddiness (principal); E86.0 Dehydration; R00.1 Bradycardia, unspecified; R55 Syncope and collapse; E78.5 Hyperlipidemia, unspecified; I10 Essential (primary) hypertension; Z86.718 Personal history of other venous thrombosis and embolism
CPT/HCPCS: 80048; 81001; 85025; 87428; 93005; 96360; 96361; 99285; J7030; A4216

== ENCOUNTER 2023-09-26 14:06 | Emergency (ER) | payer MEDICARE, SELFPAY ==
[2023-09-26 14:08] VITALS: BP 97/84; PULSE 77; RESP 14; TEMP 36.4; O2SAT 95
[2023-09-26 14:18] VITALS: BMI 24.3
--- NOTE | 2023-09-26 14:33 | RAD_ITS ---
STUDY: XR Chest 2 Views 09/26/2023 2:19 PM REASON FOR EXAM: Male, 83 years old. cough, SOB COMPARISON: None TECHNIQUE: XR Chest 2 Views FINDINGS: There is no demonstrated pleural abnormality. Normal heart size. Normal mediastinum. Normal martha. Prominent appearing increased interstitial lung markings. Normal visualized pulmonary arteries. There is atherosclerotic calcification of the aortic arch with tortuosity. There are diffuse degenerative changes of the visualized thoracic spine. There is degenerative osteoarthritis of the bilateral shoulders. Evidence for prior surgery along the left neck. There are no acute findings of the upper abdomen. RAD/Chest PA and Lateral IMPRESSION: There are no acute findings. Electronically Signed: Davonte Garcia MD at 14:58 EDT ,
--- NOTE | 2023-09-26 14:48 | EX.ED.DYSGE1 ---
HPI <JH Blue - Last Filed: 09/26/23 15:48> History of Present Illness Chief Complaint: Shortness of Breath Narrative Narrative: Patient presenting today with his daughter due to nonproductive cough, fatigue, fever, and concerns for COVID-19. He reports that his daughter just had COVID last week, his symptoms started on Wednesday. Today he developed a 102 degree fever, he took Tylenol for this. He reports that he has had chronic shortness of breath with exertion for over a year, he does not feel that it is any worse. He denies any chest pain or history of blood clots recent surgery/procedures/travel/immobilization. He denies any significant cardiac history. He reports a PMH of hypertension and hyperlipidemia. PFSH <JH Blue - Last Filed: 09/26/23 15:48> PFSH Medical History Anxiety BPH (benign prostatic hypertrophy) C6 cervical fracture C7 cervical fracture Cervical transverse process fracture Closed L3 vertebral fracture Depression DVT (deep venous thrombosis) Dysphagia Hyperlipidemia Hypertension Osteoarthritis Vertebral artery dissection Home Medications artificial tears(qcdnhkt-yaujivxj-zotjkzz) 0.1 %-0.3 %-0.2 % eye drops (GenTeal Tears Moderate) 1 drp Q1H PRN PRN DRY EYES/ITCHY ##1 06/05/16 [Rx Last Taken Unknown] aspirin 81 mg chewable tablet 81 mg PO DAILY@0800 ##30 06/05/16 [Rx Last Taken 03/23/23] atenolol 25 mg tablet 25 mg PO DAILY ##30 06/05/16 [Rx Last Taken 03/23/23] finasteride 5 mg tablet 5 mg PO DAILY ##30 06/05/16 [Rx Last Taken 03/23/23] hydrochlorothiazide 25 mg tablet 25 mg PO DAILY ##30 06/05/16 [Rx Last Taken 03/23/23] atorvastatin 20 mg tablet 20 mg PO DAILY 09/26/23 [History Last Taken Unknown] nirmatrelvir 300 mg (150 mg x2)-ritonavir 100 mg tablet,dose pack (Paxlovid) See Rx Instructions PO .COMPLEX #30 tabs 09/26/23 [Rx Last Taken Unknown] sertraline 100 mg tablet 100 mg PO DAILY 09/26/23 [History Last Taken Unknown] Allergy/AdvReac Type Severity Reaction Status Date / Time methocarbamol [From Robaxin] AdvReac Other Verified 09/26/23 14:13 Surgical History History of heart artery stent Social History Smoking Status: Never smoker ROS <JH Blue - Last Filed: 09/26/23 15:48> ROS ED Constitutional Constitutional ED: Reports fever(s) Eyes Eyes: Denies blurry vision Cardiovascular Cardiovascular: Denies chest pain or palpitations Respiratory/Chest Respiratory/Chest: Reports cough and dyspnea on exertion; Denies tachypnea or wheezing Gastrointestinal Gastrointestinal: Denies abdominal pain, nausea or vomiting Musculoskeletal Musculoskeletal: Denies arthralgias or myalgias Integumentary Denies rash Neurologic Neurologic: Reports weakness EXAM <JH Blue - Last Filed: 09/26/23 15:48> Physical Exam Const Vital Signs: 09/26/23 14:08 09/26/23 14:56 09/26/23 15:07 Temperature 97.5 F L Temperature Source Temporal Pulse Rate 77 79 Respiratory Rate 14 16 Respiratory Effort Normal Non-Labored Respiratory Depth Normal Respiratory Pattern Normal Blood Pressure 97/84 H 101/74 Blood Pressure Mean 88 83 Pulse Ox 95 97 Oxygen Delivery Method Room Air Room Air Room Air 09/26/23 15:13 09/26/23 15:20 Temperature 97.8 F 97.8 F Temperature Source Oral Temporal Pulse Rate 79 79 Respiratory Rate 16 16 Respiratory Effort Respiratory Depth Respiratory Pattern Blood Pressure 99/77 99/77 Blood Pressure Mean 84 84 Pulse Ox 97 97 Oxygen Delivery Method Room Air Room Air Positive well nourished, well developed and no apparent distress General Appearance ED: well developed HEENT Reports normocephalic and head/scalp atraumatic Mouth ED: Yes moist mucous membranes normal Eyes PERRL and EOMs intact bilaterally Neck full ROM and supple Chest Wall inspection of chest normal Resp normal respiratory effort and clear to auscultation bilaterally Cardio regular rate and regular rhythm GI soft to palpation, non-tender, non-distended and no masses Back/Spine normal ROM and normal to inspection Extremity normal to inspection and full ROM Neuro oriented x3, CN's II-XII intact bilaterally, moves all extremities, no focal motor deficits and no sensory deficits noted Sensorium / Orientation: awake and alert Psych mental status grossly normal and thought process normal Skin no rashes or lesions noted and no wounds <Dr. William Santacruz MD - Last Filed: 09/26/23 15:39> Physical Exam Const Vital Signs: 09/26/23 14:08 09/26/23 14:56 09/26/23 15:07 Temperature 97.5 F L Temperature Source Temporal Pulse Rate 77 79 Respiratory Rate 14 16 Respiratory Effort Normal Non-Labored Respiratory Depth Normal Respiratory Pattern Normal Blood Pressure 97/84 H 101/74 Blood Pressure Mean 88 83 Pulse Ox 95 97 Oxygen Delivery Method Room Air Room Air Room Air 09/26/23 15:13 09/26/23 15:20 Temperature 97.8 F 97.8 F Temperature Source Oral Temporal Pulse Rate 79 79 Respiratory Rate 16 16 Respiratory Effort Respiratory Depth Respiratory Pattern Blood Pressure 99/77 99/77 Blood Pressure Mean 84 84 Pulse Ox 97 97 Oxygen Delivery Method Room Air Room Air MDM <JH Blue - Last Filed: 09/26/23 15:48> [facility] MDM Narrative Medical decision making narrative: Patient presenting due to flulike symptoms and concerns for COVID-19 as his daughter just had this last week. He is nontoxic-appearing and in no acute distress, vitals are unremarkable. Oxygen saturation is 97% on room air. Chest x-ray obtained, negative for any acute findings. Patient is positive for COVID-19. He was vaccinated for this. Supportive care measures discussed. We did discuss pros and cons of Paxlovid, he was given a paper prescription for this. Return instructions discussed, he is to follow-up with his PCP and will be discharged home in stable condition. He is comfortable with plan Radiography Diagnostic Testing: Clinical Impression(s) from Imaging Studies Chest X-Ray 09/26/23 14:33 IMPRESSION: There are no acute findings. Electronically Signed: Davonte Garcia MD at 14:58 EDT , <Dr. William Santacruz MD - Last Filed: 09/26/23 15:39> MDM Radiography Diagnostic Testing: Clinical Impression(s) from Imaging Studies Chest X-Ray 09/26/23 14:33 IMPRESSION: There are no acute findings. Electronically Signed: Davonte Garcia MD at 14:58 EDT , Treatment and Re-Evaluation Comments:: I have personally performed a face to face assessment of the patient and have reviewed the ANATOLY Note. I performed a substantive portion of the visit including all aspects of the following. My garcia findings include: History is 2 days, cough, malaise, subjective fevers, headache. Daughter recently with COVID, in recovery. Patient has had 2 doses of vaccine remotely. Exam is well-appearing no distress lungs clear Medical Decison Making chest x-ray 2 views negative for pneumonia my interpretation. Radiology in agreement. He is not hypoxic. His vital signs are normal. He is positive for COVID. Offered Paxlovid prescription, discussed pros and cons with this. Stable for discharge home with appropriate discharge instructions. Other additions or changes: [None] Discharge Plan Triage Chief Complaint: Shortness of Breath Other Complaint: Cough ED Midlevel Provider: Jackie Mock ED Provider: William Santacruz Dx/Rx/DC Orders Clinical Impression: COVID-19 Instructions: Coronavirus Disease 2019 (COVID-19): Caring for Yourself or Others Prescriptions: New Paxlovid 300 mg (150 mg x 2)-100 mg tablets,dose pack See Rx Instructions .ROUTE .COMPLEX Qty: 30 0RF Rx Instructions: take TWO 150 mg tablets of nirmatrelvir with ONE 100 mg tablet of ritonavir twice daily for 5 days Continued atenolol 25 MG tablet 25 mg PO DAILY Qty: 30 0RF hydrochlorothiazide 25 MG tablet 25 mg PO DAILY Qty: 30 0RF finasteride 5 MG tablet 5 mg PO DAILY Qty: 30 0RF artificial tear([id number]) [GenTeal Tears Moderate] 1 DROP bottle 1 drp Each Eye Q1H PRN PRN (Reason: DRY EYES/ITCHY) Qty: 1 0RF aspirin 81 MG tablet,chewable 81 mg PO DAILY@0800 Qty: 30 0RF sertraline 100 mg tablet 100 mg PO DAILY Held atorvastatin 20 mg tablet 20 mg PO DAILY Hold Instructions: Resume on 10/05/23. assuming you start Paxlovid 09/26 Primary Care Provider: Rigo John Referrals: Rigo John MD [Primary Care Provider] - As Needed Activity Restrictions/Additional Instructions: Try to get a home portable pulse oximeter and closely watch your oxygen levels periodically. If you stay below 90% for more than a minute or so, and/or you are feeling like your breathing is getting worse, return to the emergency department for further evaluation. Currently, CDC recommendations state that you should stay home through day 5 of symptoms, then as long as symptoms are improving, if you need to go to work or somewhere else you may for days 6-10 as long as you are wearing a mask the entire time. If you are feeling better after day 10 you may resume life is normal. Disposition Disposition: Home, Self Care
[2023-09-26 14:56] VITALS: O2SAT 100
[2023-09-26 15:07] VITALS: BP 101/74; PULSE 79; RESP 16; O2SAT 97
[2023-09-26 15:13] VITALS: BP 99/77; PULSE 79; RESP 16; TEMP 36.6; O2SAT 97
[2023-09-26 15:20] VITALS: BP 99/77; PULSE 79; RESP 16; TEMP 36.6; O2SAT 97
[2023-09-26 16:06] VITALS: BP 105/86; PULSE 78; RESP 16; TEMP 36.9; O2SAT 97
== END 2023-09-26 16:07 | disposition home or self-care (01) ==
PROVIDERS: Emergency Provider Emergency Medicine; PCP Family Medicine; Visit Provider Emergency Medicine
DX: U07.1 COVID-19 (principal); E78.5 Hyperlipidemia, unspecified; I10 Essential (primary) hypertension; Z79.82 Long term (current) use of aspirin; Z79.899 Other long term (current) drug therapy; N40.0 Benign prostatic hyperplasia without lower urinary tract symptoms; F41.9 Anxiety disorder, unspecified; F32.A Depression, unspecified
CPT/HCPCS: 71046; 87631; 99282

== ENCOUNTER 2023-10-06 09:48 | Emergency (ER) | payer MEDICARE, SELFPAY ==
[2023-10-06 09:50] VITALS: BP 164/78; PULSE 89; RESP 18; TEMP 36.4; O2SAT 97; BMI 22.9
--- NOTE | 2023-10-06 10:04 | EKG12_ITS ---
Test Reason : SOB Blood Pressure : / mmHG Vent. Rate : 070 BPM Atrial Rate : 070 BPM P-R Int : 196 ms QRS Dur : 080 ms QT Int : 414 ms P-R-T Axes : 076 060 072 degrees QTc Int : 447 ms Normal sinus rhythm Normal ECG Confirmed by VIVIENNE BROOKS, MARTINEZ ([id number]), publishing editor KATE ROBISON ([id number]) on 10/07/2023 10:13:51 AM Referred By: Confirmed By:MARTINEZ PALAFOX MD
--- NOTE | 2023-10-06 10:05 | ED.VIS.DYS ---
HPI History of Present Illness Chief Complaint: Shortness of Breath Informant: patient and family (Daughter at bedside) Onset/Context/Timing Onset: Days Context: gradual Timing: Intermittent Quality: Positive for Dyspnea on exertion; Negative for Orthopnea, PND or Wheezing Current Severity: Gone Maximum Severity: Mild Worsened by: Exertion and Coughing; Not Worsened By Lying flat Relieved by: Rest; Not Relieved By Albuterol or other Associated Symptoms cough and green sputum; Negative for chills Chest Pain: Positive for None Narrative Narrative: 83-year-old male history of CAD with stents. On aspirin only. Was diagnosed with COVID on 428 in this emergency department. He has been coughing and having some mild shortness of breath primarily with exertion. No chest pain. He is no longer having fever. No nausea vomiting or diarrhea. No black or bloody stools. He does have andrews sputum. States it is probably worse with exertion or coughing. No leg pain or swelling. PE Risk Factors: Negative for Cancer, OCP + Smoking + > 35, Recent immobilization, Recent surgery or Recent travel Prior similar symptoms: No Recent Illness/Hospitalization: No PFSH PFSH Medical History Anxiety BPH (benign prostatic hypertrophy) C6 cervical fracture C7 cervical fracture Cervical transverse process fracture Closed L3 vertebral fracture Depression DVT (deep venous thrombosis) Dysphagia Hyperlipidemia Hypertension Osteoarthritis Vertebral artery dissection Home Medications artificial tears(yecvsew-wlmaltpt-bqdexac) 0.1 %-0.3 %-0.2 % eye drops (GenTeal Tears Moderate) 1 drp Q1H PRN PRN DRY EYES/ITCHY ##1 06/05/16 [Rx Last Taken Unknown] aspirin 81 mg chewable tablet 81 mg PO DAILY@0800 ##30 06/05/16 [Rx Last Taken 03/23/23] atenolol 25 mg tablet 25 mg PO DAILY ##30 06/05/16 [Rx Last Taken 03/23/23] finasteride 5 mg tablet 5 mg PO DAILY ##30 06/05/16 [Rx Last Taken 03/23/23] hydrochlorothiazide 25 mg tablet 25 mg PO DAILY ##30 06/05/16 [Rx Last Taken 03/23/23] atorvastatin 20 mg tablet 20 mg PO DAILY 09/26/23 [History Last Taken Unknown] nirmatrelvir 300 mg (150 mg x2)-ritonavir 100 mg tablet,dose pack (Paxlovid) See Rx Instructions PO .COMPLEX #30 tabs 09/26/23 [Rx Last Taken Unknown] sertraline 100 mg tablet 100 mg PO DAILY 09/26/23 [History Last Taken Unknown] potassium chloride 20 mEq tablet,extended release(part/cryst) 40 meq (2 x 20 mEq) PO DAILY 10 days #20 tabs 10/06/23 [Rx Last Taken Unknown] Allergy/AdvReac Type Severity Reaction Status Date / Time methocarbamol [From Robaxin] AdvReac Other Verified 10/06/23 09:49 Surgical History History of heart artery stent Social History Smoking Status: Never smoker ROS ROS ED ROS Narrative Cough. Shortness of breath. Review of Systems ROS Unobtainable: Denies due to encephalopathy Constitutional Constitutional ED: Denies chills or fever(s) Eyes Eyes: Denies blurry vision ENT ENT ED: Denies ear pain Cardiovascular Cardiovascular: Denies chest pain, palpitations or racing heartbeat Respiratory/Chest Respiratory/Chest: Reports cough, dyspnea and dyspnea on exertion Gastrointestinal Gastrointestinal: Denies abdominal pain, constipation, diarrhea, melena, nausea or vomiting Genitourinary Genitourinary ED: Denies dysuria or hematuria Musculoskeletal Musculoskeletal: Denies arthralgias or back pain Integumentary Denies abscess Neurologic Neurologic: Denies headache(s) Psychiatric Psychiatric: Denies anxiety or depression Endocrine Endocrinology: Denies cold intolerance, heat intolerance, polydipsia or polyphagia Hematologic/Lymphatic Hematologic/Lymphatic: Denies easy bleeding, easy bruising or lymphadenopathy Allergic/Immunologic Allergic/Immunologic ED: Denies mouth swelling, tongue swelling or urticaria EXAM Physical Exam Narrative Exam Narrative: Well-appearing 83-year-old male. Sitting upright in bed. Daughter at bedside. Vital signs are stable afebrile. Pulse ox 97% on room air. No signs of hypoxia. H EENT exam unremarkable. Neck nontender no JVD. Lungs clear to auscultation bilaterally. No rales, rhonchi or wheezing. Equal symmetrical. Heart regular rate and rhythm. Rate of 90. Chest wall and ribs nontender. Abdomen is soft and nontender. Moving all 4 extremities. Nontender no edema. No cords. No calf tenderness. Neurologically is awake alert no focal motor deficits. Normal motor strength. Awake alert. Answering questions following commands. Const Vital Signs: 10/06/23 09:50 10/06/23 10:12 10/06/23 11:18 Temperature 97.6 F L Temperature Source Temporal Pulse Rate 89 Respiratory Rate 18 Respiratory Effort Normal Non-Labored Short of Breath Respiratory Pattern Normal Blood Pressure 164/78 H Blood Pressure Mean 106 Pulse Ox 97 Oxygen Delivery Method Room Air Room Air Room Air 10/06/23 11:00 10/06/23 12:00 Temperature 97.1 F L Temperature Source Temporal Pulse Rate 60 60 Respiratory Rate 17 18 Respiratory Effort Respiratory Pattern Blood Pressure 115/62 110/67 Blood Pressure Mean 79 81 Pulse Ox 96 97 Oxygen Delivery Method Room Air Room Air Positive well nourished and well developed; Negative for obese, cachectic, contractures or unkempt General Appearance ED: well developed and NAD; Negative for unkempt, cachectic, contractures or pallor Nutritional Appearance: Negative for cachectic or obese HEENT Reports moist mucous membranes; Denies dry mucous membranes atraumatic; Negative for trauma or tenderness Mouth ED: No dry mucous membranes Mouth: No dry mucous membranes Eyes PERRL and EOMs intact bilaterally General Eye ED: Negative for pale conjunctiva, scleral icterus or other Neck no lymphadenopathy, supple, no meningeal signs and no JVD General: Negative for tenderness Lymph Lymphatic: Negative for other Chest Wall Chest: Negative for other Resp normal respiratory effort and clear to auscultation bilaterally Auscultation: Negative for rales, rhonchi, wheezes or diminished lung sounds Cardio regular rate, regular rhythm, S1 normal heart sound, S2 normal heart sound and no murmurs Rate: Negative for bradycardia or tachycardic Rhythm: Negative for abnormal rhythm GI non-tender, non-distended and no masses Inspection: Negative for other Auscultation: normoactive bowel sounds Palpation: soft; Negative for tender, guarding or rebound tenderness present Back/Spine no CVA tenderness and normal to inspection General Back: Negative for CVA tenderness Extremity normal to inspection General Extremety ED: Negative for edema or tenderness General Extremity: Negative for edema Neuro oriented x3 and CN's II-XII intact bilaterally Sensorium / Orientation: alert, oriented to person, oriented to place and oriented to time; Negative for orientation impaired, confused, lethargic or stuporous Speech: speech normal Motor Exam: strength 5/5 throughout Psych mental status grossly normal Appearance: Negative for unkempt Attitude: No agitated Mood & Affect: Negative for depressed, anxious or tearful Thought Process: normal thought process Skin no wounds and skin turgor normal General Skin Exam: Negative for jaundice or pallor Lesions: no lesions Rashes: no rashes Trauma: Negative for abrasion or laceration MDM MDM MDM Narrative Medical decision making narrative: 83-year-old male diagnosed with COVID about 13 days ago. Complaining of exertional shortness of breath. Exam benign. Undergo cardiac/respiratory workup. He is not wheezing at all to get his aerosols. Rule out pneumonia versus other causes of his dyspnea. He is not hypoxic. He has no leg swelling or pain. He has no chest pain. Repeat exam patient doing well at 1:52 PM. I had a long discussion both he and his family at bedside I believe it is his daughter. He will be started on oral potassium 40 mg a day for 10 days. Outpatient follow-up to have his potassium rechecked. His other labs look good. He knows that it may take him several weeks to get over the COVID that he was recently diagnosed with. They are comfortable with outpatient follow-up. Return if worse. History & Record Review Discussion w/independent historian: Patient Additional record(s) reviewed:: Prior inpatient record, Prior outpatient record, Prior ED visit and Prior labs Lab Data Attestation: I reviewed the patient's lab results. Lab results narrative: CBC normal. White count of 6. H&H of 15 and 46. Platelets 337. Electrolytes show potassium of 2.9. Gap 6. BUN of 20 creatinine of 1. Glucose 94. Troponin 7. Chest x-ray unremarkable. EKG sinus rhythm rate of 70. Labs: Laboratory Results - last 24 hr 10/06/23 10:15 WBC 6.1 RBC 5.53 Hgb 15.5 Hct 46.7 MCV 84.4 MCH 28.0 MCHC 33.2 RDW Std Deviation 40.4 RDW Coeff of Ila 13.1 Plt Count 337 MPV 8.7 Immature Gran % (Auto) 0.500 Neut % (Auto) 71.6 H Lymph % (Auto) 16.2 L Thurston % (Auto) 8.7 Eos % (Auto) 2.8 Baso % (Auto) 0.2 Absolute Neuts (auto) 4.3 Absolute Lymphs (auto) 0.98 Nucleated RBC % 0 Sodium 139 Potassium 2.9 L Chloride 103 Carbon Dioxide 30.0 Anion Gap 6 BUN 20 H Creatinine 1.05 Estim Creat Clear Calc 49.76 Est GFR (MDRD) Af Amer 86 Est GFR (MDRD) Non-Af 71 BUN/Creatinine Ratio 19.0 Glucose 94 Calcium 9.7 Troponin I High Sens 7 Radiography Chest X-Ray - ED: 1 View, Read by ED Physician, Read by Radiologist, Heart, Lungs, Mediastinum, Bony Structures, No Acute Disease and Chronic Changes Diagnostic Testing: Clinical Impression(s) from Imaging Studies Chest X-Ray 10/06/23 10:30 IMPRESSION: Hyperinflation. The lungs are clear. Electronically Signed: Thad Peacock MD at 11:24 EDT , Chest x-ray, portable, 2 views, interpreted by myself and the radiologist shows no acute abnormality. No infiltrate. No pneumonia. Rhythm Strip Rhythm Strip: Sinus Rhythm Rate: 70 Ectopy: None EKG Initial EKG: Attestation: I personally reviewed and interpreted this EKG as follows: Interpretation: Sinus Rhythm and No Acute Injury Pattern Comments: Normal sinus rhythm rate of 70 no acute signs of OH or ischemia. No dysrhythmia. Discharge Plan Triage Chief Complaint: Shortness of Breath ED Provider: Ventura Chan Dx/Rx/DC Orders Clinical Impression: History of COVID-19, Acute dyspnea, History of coronary artery disease, Acute hypokalemia Instructions: ED Hypokalemia Prescriptions: New potassium chloride 20 mEq tablet,ER particles/crystals 40 meq PO DAILY 10 Days Qty: 20 0RF No Action atenolol 25 MG tablet 25 mg PO DAILY Qty: 30 0RF hydrochlorothiazide 25 MG tablet 25 mg PO DAILY Qty: 30 0RF finasteride 5 MG tablet 5 mg PO DAILY Qty: 30 0RF artificial tear(qxhun-had-fsq) [GenTeal Tears Moderate] 1 DROP bottle 1 drp Each Eye Q1H PRN PRN (Reason: DRY EYES/ITCHY) Qty: 1 0RF aspirin 81 MG tablet,chewable 81 mg PO DAILY@0800 Qty: 30 0RF atorvastatin 20 mg tablet 20 mg PO DAILY Hold Instructions: Resume on 10/05/23. assuming you start Paxlovid 09/26 sertraline 100 mg tablet 100 mg PO DAILY Paxlovid 300 mg (150 mg x 2)-100 mg tablets,dose pack See Rx Instructions .ROUTE .COMPLEX Qty: 30 0RF Rx Instructions: take TWO 150 mg tablets of nirmatrelvir with ONE 100 mg tablet of ritonavir twice daily for 5 days Primary Care Provider: Rigo John Referrals: Rigo John MD [Primary Care Provider] - 1-2 Weeks Activity Restrictions/Additional Instructions: Follow-up with your doctor to ensure you are improving. Your potassium is low today at 2.9. Will be put on caterer which is a potassium pill. Once a day for the next 10 days. Follow-up with your doctor to have your potassium level rechecked. You should begin start feeling better the further along you get. It may take you a month or 2 to get over the COVID symptoms. Otherwise your labs look good today except for the low potassium. Disposition Disposition: Home, Self Care
[2023-10-06 10:12] VITALS: O2SAT 97
--- NOTE | 2023-10-06 10:30 | RAD_ITS ---
STUDY: X-RAY CHEST REASON FOR EXAM: Male, 83 years old. Chest pain TECHNIQUE: Single AP portable view of the chest. COMPARISON: Comparison is made with prior study September 18, 2023. FINDINGS: Surgical clips are seen in the left cervical region. Patient is status post fusion in the lower cervical spine. EKG electrodes are seen. Hyperinflation. The lungs are clear. There is no demonstrated pleural abnormality. Normal size heart. Normal mediastinum and martha. Normal visualized pulmonary arteries. Normal visualized aortic arch and descending thoracic aorta. Normal visualized thoracic spine. There is degenerative osteoarthritis of the bilateral shoulders. There is no demonstrated abnormality of the visualized soft tissue structures of the upper abdomen. RAD/Chest 1 View (Portable) IMPRESSION: Hyperinflation. The lungs are clear. Electronically Signed: Thad Peacock MD at 11:24 EDT ,
[2023-10-06 10:39] LABS: Absolute Lymphocyte Count 0.98 X10^3/uL (0.83-4.51); Absolute Neutrophil Count 4.3 X10^3/uL (2.0-7.7); Basophil# 0.01 X10^3/uL; Basophil% 0.2 % (0-1); Eosinophil# 0.17 X10^3/uL; Eosinophils% 2.8 % (0-5); Hematocrit 46.7 % (40-54); Hemoglobin 15.5 g/dL (13.0-16.5); Lymphocyte # 0.98 X10^3/ul (0.83-4.51); Lymphocyte % 16.2 % (19-41); Mean Corp Hgb Conc 33.2 g/dL (32-36); Mean Corpuscular Volume 84.4 fL (80-94); Mean Platelet Vol. 8.7 fl (6.2-12.0); Monocyte# 0.53 X10^3/uL; Monocyte% 8.7 % (0-10); NRBC Flagged by Analyzer 0 % (0-5); Neutrophil # 4.34 X10^3/uL (2.7-7.7); Neutrophil % 71.6 % (47-70); Platelet Count 337 K/mm3 (150-450); RBC Distribution Width CV 13.1 % (11.6-14.6); RBC Distribution Width SD 40.4 fl (35.1-43.9); Red Blood Count 5.53 M/mm3 (4.6-6.2); White Blood Count 6.1 K/mm3 (4.4-11.0)
[2023-10-06 10:57] LABS: Anion Gap 6 (5-15); BUN 20 mg/dL (7-18); Calcium,Total 9.7 mg/dL (8.5-10.1); Chloride 103 mmol/L (98-107); Creatinine, Serum 1.05 mg/dL (0.70-1.30); EST Glomerular Filtration Rate 71 mL/min (>60); Est Glom Filt Rate - Afr Amer 86 mL/min (>60); Estimated Creatinine Clearance 49.76 ml/min; Glucose 94 mg/dL (74-106); Potassium 2.9 mmol/L (3.5-5.1); Sodium Level 139 mmol/L (136-145); Troponin-I HS 7 pg/mL (3.0-78.0)
[2023-10-06 11:00] VITALS: BP 115/62; PULSE 60; RESP 17; TEMP 36.2; O2SAT 96
[2023-10-06 11:18] VITALS: O2SAT 94
[2023-10-06 12:00] VITALS: BP 110/67; PULSE 60; RESP 18; O2SAT 97
[2023-10-06 14:00] VITALS: BP 127/88; PULSE 70; RESP 18; TEMP 36.4; O2SAT 95
[2023-10-06] MEDS: Potassium Chloride Oral Tablet 20 MEQ 40 MEQ PO (14:07)
== END 2023-10-06 14:16 | disposition home or self-care (01) ==
PROVIDERS: Emergency Provider Emergency Medicine; PCP Family Medicine; Visit Provider Emergency Medicine
DX: R06.00 Dyspnea, unspecified (principal); I25.10 Atherosclerotic heart disease of native coronary artery without angina pectoris; E87.6 Hypokalemia; Z86.16 Personal history of COVID-19; Z79.82 Long term (current) use of aspirin; E78.5 Hyperlipidemia, unspecified; I10 Essential (primary) hypertension; N40.0 Benign prostatic hyperplasia without lower urinary tract symptoms; Z79.899 Other long term (current) drug therapy; F41.9 Anxiety disorder, unspecified; F32.A Depression, unspecified; Z95.5 Presence of coronary angioplasty implant and graft
CPT/HCPCS: 71045; 80048; 84484; 85025; 93005; 99283